=== PATIENT | male | born 1945 | race Caucasian/White ===

== ENCOUNTER → 2019-11-15 12:12 | Outpatient (CLI) | payer MEDICARE, OTHER, SELFPAY | PROVIDERS: Family Provider Student in an Organized Health Care Education/Training Program; PCP Student in an Organized Health Care Education/Training Program; Referring Provider Ophthalmology; Visit Provider Ophthalmology | DX: H10.33 Unspecified acute conjunctivitis, bilateral (principal) | CPT/HCPCS: 87070; 87205 ==

== ENCOUNTER → 2023-03-31 08:59 | Outpatient (CLI) | payer MEDICARE, OTHER, SELFPAY ==
--- NOTE | 2023-03-31 09:01 | DI.MRI.S_ITS ---
PROCEDURE: MR LUMBAR SPINE WO CON INDICATIONS: Spinal stenosis, lumbar region TECHNIQUE: Noncontrast sagittal T1 spin echo and T2 fast echo, sagittal STIR, and T2 fast spin echo through the lumbar spine. In cases with scoliosis, additional coronal T2 fast spin echo may be performed. COMPARISON: None. FINDINGS: Image quality: Excellent. Alignment and Curvature: There is normal bony alignment. Bone Marrow: Marrow is of normal overall signal. A large Schmorl's node is noted at the superior L2 endplate. No acute vertebral body compression fractures. Spinal Cord: Conus medullaris terminates at the L1 level. Visualized cord demonstrates normal signal and size. Paraspinous Soft Tissues: No paravertebral masses. T12-L1: Mild disc desiccation and height loss. Mild disc bulge. Mild facet ligamentum flavum hypertrophy. No canal stenosis. No foraminal narrowing. L1-L2: Moderate disc desiccation and height loss. Broad-based disc bulge. Moderate facet ligamentum flavum hypertrophy. Mild right foraminal narrowing. No left neural foraminal stenosis. L2-L3: Moderate disc desiccation and height loss. Broad-based disc bulge. Moderate facet ligamentum flavum hypertrophy. Moderate right and mild left neural foraminal stenosis. L3-L4: Mild disc desiccation and height loss. Broad-based disc bulge. Moderate facet and ligamentum flavum hypertrophy. Moderate canal stenosis. Moderate bilateral foraminal stenosis. L4-L5: Moderate to severe disc desiccation and height loss. Broad-based disc bulge. Severe facet ligamentum flavum hypertrophy. No canal stenosis. Moderate right and mild left neural foraminal stenosis. L5-S1: Severe disc desiccation and height loss. There is a 1.2 cm left synovial cyst along the lateral aspect of the facet joint. Moderate bilateral foraminal narrowing. No canal stenosis. IMPRESSION: 1. Disc desiccation height loss throughout the lumbar spine most severe at L5-S1. 2. Moderate bilateral foraminal stenosis at L3-4 and L5-S1, moderate right foraminal stenosis at L4-5 and L2-3. 3. Moderate to severe facet ligamentum flavum hypertrophy throughout the lumbar spine. Dictated by: Jessica Mitchell M.D. on 03/31/2023 at 10:33 Approved by: Jsesica Mitchell M.D. on 03/31/2023 at 10:37
== END ==
PROVIDERS: Family Provider Student in an Organized Health Care Education/Training Program; PCP Student in an Organized Health Care Education/Training Program; Referring Provider Physical Medicine & Rehabilitation Pain Medicine; Visit Provider Physical Medicine & Rehabilitation Pain Medicine
DX: M48.062 Spinal stenosis, lumbar region with neurogenic claudication (principal); M48.07 Spinal stenosis, lumbosacral region; M47.816 Spondylosis without myelopathy or radiculopathy, lumbar region
CPT/HCPCS: 72148

== ENCOUNTER → 2023-07-10 08:43 | Outpatient (CLI) | payer MEDICARE, OTHER, SELFPAY ==
--- NOTE | 2023-07-10 08:45 | DI.MRI.S_ITS ---
PROCEDURE: MR LUMBAR SPINE WO CON INDICATIONS: SPINAL STENOSIS, LUMBAR REGION TECHNIQUE: Noncontrast sagittal T1 spin echo and T2 fast echo, sagittal STIR, and T2 fast spin echo through the lumbar spine. In cases with scoliosis, additional coronal T2 fast spin echo may be performed. COMPARISON: [facility], MR, MR LUMBAR SPINE WO CON, 03/31/2023, 9:19. FINDINGS: Image quality: Excellent. Alignment and Curvature: There is normal bony alignment. Bone Marrow: Marrow is of normal overall signal. No acute vertebral body compression fractures. Scattered areas of Modic type 2 degenerative endplate changes are present. Spinal Cord: Conus medullaris terminates at the L1 level. Visualized cord demonstrates normal signal and size. Paraspinous Soft Tissues: No paravertebral masses. Mild grade 2 fatty infiltration of the paraspinous musculature. T12-L1: No significant spinal canal stenosis or neural foraminal narrowing. L1-L2: Mild circumferential disc bulging as well as mild bilateral facet hypertrophy and buckling of the ligamentum flavum. Findings result in mild narrowing of the spinal canal as well as mild to moderate left and mild right neural foraminal narrowing. L2-L3: Disc desiccation and circumferential disc bulging with mild bilateral facet hypertrophy and buckling of the ligamentum flavum. There is a questionable small disc extrusion in the right foraminal zone. Overall, findings result in mild to moderate narrowing of the spinal canal with effacement of the right lateral recess and at least moderate bilateral neural foraminal narrowing, slightly worse on the right. L3-L4: New disc extrusion is seen in the right paracentral to foraminal zone extending approximately 10 mm superiorly along the posterior aspect of the L3 vertebral body. This material is not as well visualized on axial images due to pulsation artifact. There is also circumferential disc bulging, moderate bilateral facet hypertrophy, and buckling of the ligamentum flavum at this level. Findings result in moderate narrowing of the spinal canal with effacement of the lateral recesses that is greater on the right than on the left as well as likely severe right neural foraminal narrowing with disc material impinging upon the exiting L3 nerve root and moderate left neural foraminal narrowing. L4-L5: Disc desiccation and loss of disc space height with circumferential disc bulging, moderate bilateral facet hypertrophy, buckling of the ligamentum flavum. Findings result in moderate narrowing of the spinal canal with basement of the lateral recesses that is slightly worse on the right as well as moderate to severe right and moderate left neural foraminal narrowing. L5-S1: Severe loss of disc space height with posterior disc-osteophyte complex and mild bilateral facet hypertrophy. Findings result and moderate neural foraminal narrowing without significant spinal canal stenosis. IMPRESSION: 1. At L3-4, a new right paracentral to right foraminal disc extrusion is seen with suspected impingement upon the exiting right L3 nerve root. Recommend correlation with neurologic exam findings. 2. At L4-5, degenerative changes result in moderate to severe right neural foraminal narrowing as well as moderate left neural foraminal narrowing and moderate spinal canal stenosis. 3. At L2-3, there is a questionable small right foraminal disc extrusion resulting in at least moderate versus high-grade narrowing of the right neural foramen. 4. Additional multilevel degenerative disc disease and facet hypertrophy as described in detail in the body of the report. No additional high-grade neural foraminal narrowing or high-grade spinal canal stenosis. Approved by: Rip White M.D. on 07/10/2023 at 12:44
== END ==
LOC: MRI 08:45
PROVIDERS: Family Provider Student in an Organized Health Care Education/Training Program; Referring Provider Physical Medicine & Rehabilitation Pain Medicine; Visit Provider Physical Medicine & Rehabilitation Pain Medicine
DX: M48.062 Spinal stenosis, lumbar region with neurogenic claudication (principal); M51.26 Other intervertebral disc displacement, lumbar region; M51.36 Other intervertebral disc degeneration, lumbar region; M47.816 Spondylosis without myelopathy or radiculopathy, lumbar region; M47.817 Spondylosis without myelopathy or radiculopathy, lumbosacral region
CPT/HCPCS: 72148

== ENCOUNTER → 2023-07-21 09:42 | Outpatient (CLI) | payer MEDICARE, OTHER, SELFPAY ==
[2023-07-21 11:19] LABS: Add Manual Diff / Slide Review NO; Basophils Absolute Auto 100 /uL (0-100); Basophils Percent Auto 0.9 % (0-2); Eosinophils Absolute Auto 200 /uL (0-450); Eosinophils Percent Auto 1.8 % (2-4); Hematocrit 43.5 % (41-53); Hemoglobin 15.4 g/dL (13.5-17.5); Lymphocytes Absolute Auto 1900 /uL (1100-4500); Lymphocytes Percent Auto 21.1 % (25-40); Mean Corpuscular HGB Conc 35.5 % (30-36); Mean Corpuscular Hemoglobin 35.3 PG (26-34); Mean Corpuscular Volume 99.3 fL (80-100); Monocytes Absolute Auto 1000 /uL (0-900); Monocytes Percent Auto 10.5 % (3-14); Neutrophils Absolute Auto 6000 /uL (1500-7000); Neutrophils Percent Auto 65.7 % (50-75); Platelet Count 311 X10^3/uL (150-400); Red Blood Cell Count 4.38 X10^6/uL (4.5-5.9); Red Cell Distribution Width 12.6 % (11.6-14.8); White Blood Cell Count 9.1 X10^3/uL (4.5-11.0)
[2023-07-21 11:42] LABS: BUN Creatinine Ratio 16.1 (6-22); Blood Urea Nitrogen 14 mg/dL (9-20); Calcium 9.5 mg/dL (8.4-10.2); Carbon Dioxide 28 mmol/L (22-32); Chloride 105 mmol/L (98-107); Estimated Glomerular Filt Rate > 60 mL/min (>60); Glucose 103 mg/dL (80-110); HEMOLYSIS < 15 (0-50); Potassium 4.6 mmol/L (3.4-5.1); Sodium 136 mmol/L (137-145)
== END ==
PROVIDERS: Family Provider Student in an Organized Health Care Education/Training Program; Referring Provider Orthopaedic Surgery Orthopaedic Surgery of the Spine; Visit Provider Orthopaedic Surgery Orthopaedic Surgery of the Spine
DX: Z01.818 Encounter for other preprocedural examination (principal); Z01.812 Encounter for preprocedural laboratory examination
CPT/HCPCS: 36415; 80048; 85025; 93005

== ENCOUNTER 2023-08-03 07:32 | Inpatient (IN) | payer MEDICARE, OTHER, SELFPAY ==
[2023-07-29 12:39] VITALS: BMI 25.0
[2023-08-03] VITALS (16 sets, daily range): BP systolic 116–151; BP diastolic 52–85; PULSE 62–84; RESP 10–17; TEMP 36.3–37.3; O2SAT 10–99; BMI 25.0
[2023-08-03] MEDS: LACTATED RINGERS 1,000 ML 42 ML IV ×2 (08:43→11:25)
[2023-08-03] MEDS: ACETAMINOPHEN 325 MG TABLET 975 MG PO (08:43)
--- NOTE | 2023-08-03 09:34 | PM.PREOP ---
Pre-operative Note Interval Note History & Physical reviewed/Exam performed by Physician: Yes Changes to H&P: No
[2023-08-03] MEDS: CEFAZOLIN 2 GM/100 ML PREMIX 100 ML IV ×2 (10:04→17:31)
--- NOTE | 2023-08-03 10:18 | SUR.OPER ---
Prone on spine table, head in foam head support, padded chest and pelvic supports, gel pad at knees, lower legs supported by pillows; nipples, genitalia and toes free of pressure, arms secured on foam padded arm boards at <90 degrees abduction. Tape over blanket at thigh secured to table.
[2023-08-03] MEDS: BUPIVACAINE LIPOSOME 266 MG/20 ML VIAL INJ (10:25)
[2023-08-03] MEDS: BUPIVACAINE 0.25% (PF) 60 ML, EPINEPHrine 0.15 MG INJ (10:25)
--- NOTE | 2023-08-03 12:24 | PM.OP.1 ---
Operative Date/Time/Diagnoses Date of procedure: 08/03/23 Time of procedure: 10:15 Pre-op diagnosis: 1. 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 L3-4 foramen stenosis Post-op diagnosis: same Procedure & Clinicians Procedure: 1. L3-4 Postero-lateral and posterior interbody fusion 2. L3-4 interbody cage placement. 3. L3-4 decompressive laminectomy with bilateral facetecomies 4. L3-4 Posterior non-segmental instrumentation 5. [place] of bone marrow from iliac crest 6. Utilization of microsurgical technique and operating microscope Same procedure as scheduled: Yes Indications: Patient has been having chronic back pain and worsening lumbar radiculopathy. Patient was found to have a L3-4 right far lateral disc herniation with migration causing significant lumbar radiculopathy correlating with his symptoms. Patient failed multiple conservative management with worsening pain weakness and numbness in his lower extremity. Patient has been having difficulty performing activity of daily living. After discussing risks benefits of treatment options, patient elected proceed with surgery. Surgeon: Benjamin Benavides Dress Cap Maker: Zee Denney Click Yes if Unassisted: No Anesthesia Type: General Operative Notes Closure Type: primary Specimen(s): none sent Prosthetic devices, grafts, tissues, transplants, or devices: Globus revolve screws, Rise cage Estimated Blood Loss (mL): 50 Blood products transfused: none Procedure in detail: Patient was seen in the preoperative area. Risks and benefits of the surgery was discussed with the patient. Informed consent was obtained from the patient and placed in the chart. Surgical site was marked. Patient was taken to the operative room. General anesthesia was administered. Prophylactic antibiotic was given to the patient less than 30 min before the incision was made. Patient was placed into a prone position on the Cecilio table. Patient's back was then prepped and draped in the sterile fashion. Time-out was performed at this time. Using AP and lateral C-arm imaging the interval between L3-4 was identified and marked on patient's back. A 2 inch incision 2 in from midline was made on the right side first. The fascia was incised in line with skin incision. Globus MARS retractors was placed inside the incision and docked onto the L3 lamina. Using microsurgical technique and operating microscope, a L3 laminectomy and L3-4 facetectomy was performed using a Kerrison rongeur. The laminectomy and facetectomy was performed in order to decompress patient's cauda equina as well as the nerve roots exiting at the L3-4 level. The disc space at L3-4 was identified. And a total diskectomy was performed at L3-4 level. There were multiple fragments of disc migrated cephalad and lateral causing significant lateral recess and foraminal stenosis with significant L3 nerve root impingement. Total facetectomy was required along with diskectomy in order to properly decompress the L3-4 lateral recess as well as the neural foramen. The endplates were decorticated using a rasp and shaver. The total diskectomy and decortication was performed at L3-4 level in order to to accomplish a L3-4 fusion. The local bone from the laminectomy and facetectomy was saved for local bone grafting. After the total diskectomy and decortication was completed, Globus Viacel bone graft material was combined with local bone that was harvested earlier. At this time, a separate skin is incision was made over the iliac crest. A Jamshidi needle was inserted into the iliac crest through a separate skin incision. 5 cc of bone marrow aspiration was obtained through the separate skin incision using a Jamshidi needle from the iliac crest. The bone marrow aspiration was combined with local bone and the Viacel bone grafting material. The bone grafting material was placed into the L3-4 interbody space along with a expandable cage. The cage was expanded to its maximum height using the torque limiting screwdriver. At this time a mirror image incision was made on the left side. The fascia was incised in line with the skin incision. Globus MARS retractor was inserted and docked onto the L3-4 posterolateral gutter. Using the power drill, posterior-lateral decortication was performed at L3-4 level until bleeding cortical bone was identified. The remaining bone grafting material was placed into the L3-4 posterior lateral gutter he order to accomplish posterolateral fusion at the L3-4 level. Using the double C-arm technique, pedicle screws were placed into the L3-4 pedicles bilaterally. This was done by placing the Jamshidi needle into the pedicles, then placing the guidewires over the Jamshidi needle, and finally placing the cannulated screws over the guidewires bilaterally. After the pedicle screws were placed, 2 titanium rods was locked into the heads of the pedicle screws using locking caps and torque limiting screwdriver. After all the hardware was placed, and confirmed with AP and lateral C-arm imaging, the wound was then irrigated with sterile normal saline and packed with Ray-Danelle gauze for 3 min to accomplish hemostasis. After the gauze was removed the deep fascia was closed with #1 Vicryl suture. The subcutaneous layer was closed with 2-0 Vicryl. The skin was closed with skin jude. Patient tolerated the procedure well. There were no complications. The Operation could not have been safely performed without compromising the technical result or length of the procedure, without the assistance of a skilled surgical services coordinator. The surgical services coordinator was medically necessary for proper positioning, retraction and manipulation of instruments, proper exposure, surgical preparation, and manipulation of tissue. Neuro monitoring was utilized throughout the entire case. Patient's monitoring signal was stable throughout entire procedure without any issues. Complications: none Post-operative Condition: stable Disposition: PACU Plan for aftercare: Admit to inpatient hospital
--- NOTE | 2023-08-03 12:27 | DI.RAD.S_ITS ---
PROCEDURE: XR LUMBAR SPINE 2-3V INDICATIONS: L3-4 TLIF TECHNIQUE: Intraoperative fluoroscopic views of the lumbar spine were acquired. COMPARISON: None. FINDINGS: Bones: 2 intraoperative fluoroscopic views demonstrate posterior fusion and discectomy at L3-4. IMPRESSION: Intraoperative fluoroscopic views of posterior fusion and discectomy. Dictated by: Jessica Mitchell M.D. on 08/03/2023 at 13:17 Approved by: Jessica Mitchell M.D. on 08/03/2023 at 13:17
[2023-08-03] MEDS: fentaNYL 100 MCG/2 ML INJ IV ×2 (12:45→12:52)
[2023-08-03] MEDS: hydrOXYzine 50 MG/ML INJ 25 MG IM (12:55)
[2023-08-03] MEDS: HYDROMORPHONE 1 MG INJ IV (13:02)
[2023-08-03] MEDS: OXYCODONE IR 5 MG TABLET PO (13:38)
--- NOTE | 2023-08-03 14:02 | SUR.PHASEI ---
PT TRANSFERED TO FLOOR WITH BELONGINGS BAG AND BY NESS MCCOY
[2023-08-03] MEDS: LACTATED RINGERS 1,000 ML 125 ML IV (14:47)
[2023-08-03] MEDS: HYDROMORPHONE 0.5 MG INJ IV ×2 (14:48→19:43)
--- NOTE | 2023-08-03 15:14 | PC.NURSE ---
1404--rec'd pt from PACU awake and alert but resting with eyes closed; reports pain 8/10 to lower back; pt was medicated in PACU prior to transfer; dressing to mid lower back CDI; pedal strength equal bilaterally; pt on o2/2l/nc; at bedside; status report given
[2023-08-03] MEDS: OXYCODONE IR 10 MG TABLET PO ×3 (16:57→23:12)
[2023-08-03] MEDS: DOCUSATE 100 MG CAPSULE PO (20:21)
[2023-08-03] MEDS: levETIRAcetam 250 MG TABLET 1000 MG PO (20:22)
[2023-08-03] MEDS: SENNOSIDES 8.6 MG TABLET 17.2 MG PO (20:22)
[2023-08-03] MEDS: PHENYTOIN ER 100 MG CAPSULE PO (20:23)
[2023-08-03] MEDS: ONDANSETRON 4 MG ODT SL (23:12)
[2023-08-04] VITALS: BP 121/56; PULSE 79; RESP 19; TEMP 36.7; O2SAT 94
[2023-08-04] MEDS: CEFAZOLIN 2 GM/100 ML PREMIX 100 ML IV (02:00)
[2023-08-04] MEDS: OXYCODONE IR 10 MG TABLET PO ×2 (02:46→08:12)
[2023-08-04 04:00] VITALS: BP 122/59; PULSE 79; RESP 17; TEMP 36.8; O2SAT 93
[2023-08-04 05:05] LABS: Hematocrit 38.3 % (41-53); Hemoglobin 13.2 g/dL (13.5-17.5)
--- NOTE | 2023-08-04 07:43 | PM.PNPO.1 ---
Subjective Subjective Date Patient Seen: 08/04/23 Time Patient Seen: 07:43 Interval history: Patient's pain is moderate to severe. Patient has not yet been out of bed. Patient has his home to assist him. Exam Vital Signs (past 8 hours): - 08/04/23 00:00 08/04/23 04:00 Temperature 98.0 F 98.3 F Pulse Rate 79 79 Respiratory Rate 19 17 Blood Pressure 121/56 L 122/59 L Pulse Oximetry 94 93 Oxygen Flow Rate 1 Oxygen Delivery Method Nasal Cannula Oxygen Flow Rate 1 Narrative Exam Narrative: 77-year-old male resting comfortably in bed in no apparent distress. Motor functions intact bilateral lower extremities. Sensation grossly intact to light touch bilateral lower extremities. Const General: cooperative and comfortable Nutritional Appearance: average body habitus Orientation: alert Resp Effort & Inspection: normal respiratory effort and able to speak in complete sentences Objective Labs 08/04/23 04:18 Labs: Laboratory Results - last 24 hr 08/04/23 04:18 Hgb 13.2 L Hct 38.3 L PFSH Medical History (Updated 07/29/23 @ 13:10 by Pricila Valdez RN) Radiculopathy Lumbar disc herniation Bladder cancer (2020) Arthritis Seizure disorder (~1983) Surgical History (Updated 07/29/23 @ 13:10 by Pricila Valdez RN) Hx of tonsillectomy H/O transurethral resection of bladder tumor (TURBT) Hx of bilateral cataract extraction Social History household members: spouse Smoking Status: Former smoker alcohol intake: current Assessment & Plan Post-op Postoperative Procedures: Procedures Operation Date: 08/03/23 09:15 Actual Procedure Side Surgeon p L3-4 TLIF Benjamin Benavides MD Postoperative day: 1 Postoperative status: doing well and marginal pain control Postoperative plan: routine post-op care Postoperative plan narrative: Mobilize with physical therapy, limit bending, twisting, lifting Multimodal pain management Disposition likely home today or tomorrow. Quality VTE Deep Vein Thrombosis/Pulmonary Embolism Present on Admission: No
[2023-08-04] MEDS: PHENYTOIN ER 100 MG CAPSULE PO ×2 (08:11→20:49)
[2023-08-04] MEDS: CHOLECALCIFEROL (VITAMIN D3) 1,000 UNIT TABLET 2000 UNIT PO (08:11)
[2023-08-04] MEDS: DOCUSATE 100 MG CAPSULE PO ×2 (08:12→20:49)
[2023-08-04] MEDS: levETIRAcetam 250 MG TABLET 1000 MG PO ×2 (08:12→20:49)
[2023-08-04 08:47] VITALS: BP 126/61; PULSE 83; RESP 15; TEMP 37.2; O2SAT 95
--- NOTE | 2023-08-04 09:10 | PT.IIE ---
Current Diagnoses Spinal stenosis, lumbar region without neurogenic claudication (08/03/23) Intervertebral disc disorders with radiculopathy, lumbar region (08/03/23) Surgery Performed Operation Date: 08/03/23 09:15 Actual Procedures p L3-4 TLIF - Benjamin Benavides MD Surgical History (Last Updated 07/29/23 @ 13:10 by Pricila Valdez, RN) H/O transurethral resection of bladder tumor (TURBT) Hx of bilateral cataract extraction Hx of tonsillectomy Medical History (Last Updated 07/29/23 @ 13:10 by Pricila Valdez RN) Arthritis Bladder cancer (2020) Lumbar disc herniation Radiculopathy Seizure disorder (~1983) Physical Therapy Inpatient Evaluation/Re-Eval M1 PT/OT-IP Prior Functional Status Start: 08/04/23 12:54 Freq: NEEDED Status: Active Protocol: Document 08/04/23 09:10 AB (Rec: 08/04/23 13:07 AB [id number]) Medical Review Prior Functional Status Medical History Reviewed Yes Communication able to make needs known Mobility and Gait pt stated that he was independen tiwht all mobilities and ambulation using a FWW Social History Household Members spouse Living Arrangements House Number of Floors (Floors) One Floor Number of Stairs To Enter/Railing? no steps to enter Home Environment Standard Height Toilet,Walk in Shower,Tub/Shower Home Equipment Front Wheel Walker,Raised Toilet Seat w/Armrests,Shower Seat with Backrest,Hand Held Shower M2 PT-IP Current Condition Start: 08/04/23 12:54 Freq: NEEDED Status: Active Protocol: Document 08/04/23 09:10 AB (Rec: 08/04/23 13:07 AB [id number]) Physical Therapy Current Condition Current Condition Evaluation Date 08/04/23 Treatment Diagnosis s/p L3-4 TLIF; difficulty in walkiing Onset Date 08/03/23 M3 PT-IP Subjective Start: 08/04/23 12:54 Freq: NEEDED Status: Active Protocol: Document 08/04/23 09:10 AB (Rec: 08/04/23 13:07 AB [id number]) Subjective Physical Therapy Visit Type Type Initial Evaluation Visit Start Time 09:10 Visit Stop Time 10:05 Number of FICTION AND NONFICTION WRITER PROSE Visits 0 Physical Therapy Visit Comments Patient Comments agreeable to do PT Therapy Pain Assessment Pain When Pain Assessed At Rest Pain Present Pain Present Pain Reported Location Back Intensity 9 Scale Used Numeric (0 - 10) Pain Management Techniques Distraction,Modification of Treatment,Re-positioning, Timing of Activity with Medications M4 PT-IP Mobility and Gait Start: 08/04/23 12:54 Freq: NEEDED Status: Active Protocol: Document 08/04/23 09:10 AB (Rec: 08/04/23 13:07 AB [id number]) PT-Bed Mobility Assessment Rolling Type of Rolling Log Rolling Level of Assist Maximal Assistance Supine to Sit Supine to Sit Maximum Assistance,1 Person Assistance,2 Person Assistance ,Bedrails Sit to Supine Sit to Supine Maximum Assistance,2 Person Assistance,Bedrails Scooting Scooting to Edge of Bed Maximum Assistance Scooting Up and Down in Bed Minimal Assistance PT-Transfer Assessment Sit to and From Stand Sit to and from Stand Maximum Assistance,2 Person Assistance,Use of Upper Extremities Equipment Transfer Assistive Device Gait Belt,Front Wheeled Walker Orthotic/Prosthetic Devices or Brace: No Comments Mobility Comments pt supine in bed and agreeable to do PT. obtained PLOF and home set up from pt. with requiring increase time to respond to questions and instructions. spouse arrived. educated pt regarding back precautions and log roll bed mobility. pt completed supine to sit max a x 1-2 and max cues. c/o increase back pain. pt requiring mod A for sitting balance on EOB. max A for scooting to EOB. attempted sit<>stand x 2 reps but pt unable to stand. NAC came to assist. attempted sit <>stand again x 3 reps. pt able to stand on last attempt but requiring max A x 2 for standing balance using FWW for support. pt also has heavy UE use on FWW and LE pushing against the bed for support. (+) L knee buckling noted. attempted to step trasnfer to chair but pt unable to complete. pt requested to sit back on EOB. pst stated that he has to use the toilet. pt not safe to stand and use the urinal at this time and unable to lean sideway to assist with brief/pants management. opted for pt to lay back in bed. pt scooted to HOB min A and cues. completed log roll sit to supine max A x 2 and max cues. positioned pt in bed. call light and table placed within reach. Gait Assessment Comments Gait Comments unable at this time PT-Balance Assessment Sitting Balance and Reactions Static Sitting Balance Ability Fair Dynamic Sitting Balance Ability Poor Standing Balance and Reactions Static Standing Balance Ability Poor Dynamic Standing Balance Ability Poor Device Used FWW M5 PT-IP Objective Assessments Start: 08/04/23 12:54 Freq: NEEDED Status: Active Protocol: Document 08/04/23 09:10 AB (Rec: 08/04/23 13:07 AB [id number]) Orientation Orientation/Cognition Level of Alertness Confusional State Orientation Name,Place,Situation Language Function Ability Hard of Hearing Memory Description 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,Cable Swager Impaired Gross Range of Motion Lower Extremity ROM Assessment Within Functional Limits Strength Lower Extremity Strength Assessment Right Impaired Hip 3+/5 Knee 3-/5 Sensation Assessment Sensation Gross Sensation WNL Muscle Tone Muscle Tone WNL Yes M6 PT-IP Treatment Start: 08/04/23 12:54 Freq: NEEDED Status: Active Protocol: Document 08/04/23 09:10 AB (Rec: 08/04/23 13:07 AB [id number]) Physical Therapy Treatment Education Education Provided Precautions,Weight Bearing Status,Post-Op Packet,Safety M7 PT-IP Assessment and Plan Start: 08/04/23 12:54 Freq: NEEDED Status: Active Protocol: Document 08/04/23 09:10 AB (Rec: 08/04/23 13:07 AB [id number]) PT Summary Assessment and Plan Potential Rehabilitation Potential Fair Status of Condition at Evaluation Evolving Summary Impairments Pain,ROM,Strength,Balance, Coordination,Sensation,Tone, Cognition,Bed Mobility, Transfers,Gait,Activity Tolerance Assessment Summary pt is a 77 y/o M s/p L3-4 TLIF POD 1. pt has back precautions. pt requiring max A x 2 to total A x 2 form mobility and unable to transfer or ambulate at this time. Mechanical lift transfers with nursing staff at this time. pt will require SNF rehab ot improve overall strength and mobility. will continue to assess. Goals Bed Mobility Goal Minimal Assistance Transfer Goal Minimal Assistance,Front Wheeled Walker Gait Goal Minimal Assistance,Front Wheel Walker Gait Distance 25 Other Goals improve bed mobility, transfers and ambulation using FWW ~ 100 ft SBA Days to Meet Goals 10 Frequency of Treatment Frequency Of Treatment Twice a Day Treatment Plan Physical Therapy Treatment Plan Bed Mobility Training,Transfer Training,Gait Training, Therapeutic Exercise,Balance Retraining,Post Op Education, Discharge Planning,Hot or Cold Pack,Neuromuscular Re-ed, Coordination Retraining,Manual Therapy Precautions Lumbar Precautions Log Roll,No Twisting,Limit Bending,Lifting Restriction of 10 lbs,Gait Belt above Incisional Area Recommendations To Nursing Amount of Assist Needed Mechanical Lift Discharge Recommendations PT Discharge Recommendations SNF Rehab Transportation Needs at Discharge Wheelchair/Cabulance
--- NOTE | 2023-08-04 11:15 | OT.IP.EVAL ---
Current Diagnoses Spinal stenosis, lumbar region without neurogenic claudication (08/03/23) Intervertebral disc disorders with radiculopathy, lumbar region (08/03/23) Surgery Performed Operation Date: 08/03/23 09:15 Actual Procedures p L3-4 TLIF - Benjamin Benavides MD Past Medical History (Last Updated 07/29/23 @ 13:10 by Pricila Valdez, RN) Arthritis Bladder cancer (2020) Lumbar disc herniation Radiculopathy Seizure disorder (~1983) Surgical History (Last Updated 07/29/23 @ 13:10 by Pricila Valdez RN) H/O transurethral resection of bladder tumor (TURBT) Hx of bilateral cataract extraction Hx of tonsillectomy Occupational Therapy Inpatient Evaluation/Re-Eval M1 PT/OT-IP Prior Functional Status Start: 08/04/23 12:54 Freq: NEEDED Status: Active Protocol: Document 08/04/23 09:10 AB (Rec: 08/04/23 13:07 AB [id number]) Medical Review Prior Functional Status Medical History Reviewed Yes Communication able to make needs known Mobility and Gait pt stated that he was independent with all mobilities and ambulation using a FWW Social History Household Members spouse Living Arrangements House Number of Floors (Floors) One Floor Number of Stairs To Enter/Railing? no steps to enter Home Environment Standard Height Toilet,Walk in Shower,Tub/Shower Home Equipment Front Wheel Walker,Raised Toilet Seat w/Armrests,Shower Seat with Backrest,Hand Held Shower M1 PT/OT-IP Prior Functional Status Start: 08/04/23 13:04 Freq: NEEDED Status: Active Protocol: Document 08/04/23 10:45 [facility] (Rec: 08/04/23 13:30 [facility] [id number]) Medical Review Prior Functional Status Communication Independent Mobility and Gait Pt states used a 4ww at all times. Activities of Daily Living and IADL's Pt states has pain and needing increased time for ADL and IADL needs. Social History Household Members spouse Living Arrangements House Number of Floors (Floors) One Floor Number of Stairs To Enter/Railing? NO steps to enter. Home Environment High Toilet,Tub/Shower Home Equipment Front Wheel Walker,Four Wheel Walker,Manual Wheelchair, Raised Toilet Seat w/Armrests, Shower Seat with Backrest,Hand Held Shower Additional Social History Comment Pt states has orders grab bars to put up in the shower. M2 OT-IP Current Condition Start: 08/04/23 13:04 Freq: Status: Active Protocol: Document 08/04/23 10:45 [facility] (Rec: 08/04/23 13:30 [facility] [id number]) Occupational Therapy Current Condition Current Condition Evaluation Date 08/04/23 Treatment Diagnosis S/P L3-4 TLIF Post Operative Precautions Lumbar Precautions Log Roll,No Twisting,Limit Bending,Lifting Restriction of 10 lbs,Gait Belt above Incisional Area M3 OT- IP Subjective and Pain Start: 08/04/23 13:04 Freq: Status: Active Protocol: Document 08/04/23 10:45 [facility] (Rec: 08/04/23 13:30 [facility] [id number]) OT- Subjective Occupational Therapy Visit Type Type Initial Evaluation Visit Start Time 10:45 Visit Stop Time 11:15 Occupational Therapy Visit Comments Patient Comments Pt agreed to get up. OT Pain Assessment Pain When Pain Assessed During Mobility Pain Present Pain Present Pain Reported Location Back Intensity 9 Scale Used Numeric (0 - 10) M4 OT- IP ADL's Start: 08/04/23 13:04 Freq: Status: Active Protocol: Document 08/04/23 10:45 [facility] (Rec: 08/04/23 13:30 [facility] [id number]) OT [id number] Comments OT Self-Feeding Comments Not at meal time. OT ADL-Grooming General Evaluation Grooming Ability Standby Assistance Comments OT Grooming Comments Set-up. OT ADL-Oral Care General Eval Oral Care Ability Standby Assistance Comments Oral Care Comments Educated if standing best to spit into a cup or hinge at his hips to best follow his back precautions. OT ADL-Dressing General Eval Lower Body Dressing Ability Maximum Assistance Areas Needing Assistance Socks Comments OT Dressing Comments Initiated education of LB dressing equipment needs. OT ADL-Toileting General Evaluation Toileting Ability Maximum Assistance Comments OT Toileting Comments Nursing aid assisting to hold the urinal for the pt to use while standing with FWW and two person assist. OT ADL-Bathing Comments OT Bathing Comments Sponge bath more appropriate at this time. M5 OT- IP IADL's Start: 08/04/23 13:04 Freq: Status: Active Protocol: Document 08/04/23 10:45 [facility] (Rec: 08/04/23 13:30 [facility] [id number]) OT-Instrumental Activities of Daily Living Home Safety Awareness Awareness of Need for Assistance at Home Decreased Awareness Home Safety Comments Pt is groggy and having difficulty to follow commands at this time. Medication Management Medication Management Comments Pt states does his own. Money Management Money Management Comments Pt states pays the bills. Meal Preparation Meal Preparation Caregiver Provides Assist Visiting Housekeeper Visiting Housekeeper Caregiver Provides Assist M6 OT- IP Functional Cognition Start: 08/04/23 13:04 Freq: Status: Active Protocol: Document 08/04/23 10:45 [facility] (Rec: 08/04/23 13:30 [facility] [id number]) Cognitive Factors Limiting Selfcare Function Cognitive Ability Level of Alertness Drowsy Patient Orientation Name,Place,Situation Attention Span Ability Capable of Focused Attention, Unable to Focus,Unable to Sustain Attention Ability to Follow Commands Able to Follow One Step Commands with Increased Time, Able to Follow One Step Commands with Repetition Safety Awareness Decreased Recall of Precautions,Decreased Ability to Apply Precautions, Underestimates Need for Assistance Cognitive Comments Cognitive Assessment Comments Pt is groggy, needing increased time to process and follow directions, and pt is also impulsive and needing MAX vc for safety awareness at this time. M7 OT- IP Mobility and Balance Start: 08/04/23 13:04 Freq: Status: Active Protocol: Document 08/04/23 10:45 [facility] (Rec: 08/04/23 13:30 [facility] [id number]) OT-Transfer Assessment Sit to and From Stand Sit to and from Stand Moderate Assistance,2 Person Assistance Transfers Transfer Ability Moderate Assistance,2 Person Assistance Technique Transfer Destination Bed,Chair Transfer Technique Stand Step Pivot Devices Transfer Assistive Devices Gait Belt,Front Wheeled Walker Comments Mobility Comments MOD A to assist to get his trunk upright from sidelying. MOD A x2 to stand with FWW. MOD A x2 to transfer to the recliner, pt tends to buckle. OT- Balance Assessment Sitting Balance and Reactions Static Sitting Balance Ability Fair Dynamic Sitting Balance Ability Poor Standing Balance and Reactions Static Standing Balance Ability Poor Dynamic Standing Balance Ability Poor M8 OT- IP Objective Assessments Start: 08/04/23 13:04 Freq: Status: Active Protocol: Document 08/04/23 10:45 [facility] (Rec: 08/04/23 13:30 [facility] [id number]) OT Gross Range of Motion Upper Extremity Range of Motion Assessment Within Functional Limits M9 OT- IP Assessment and Plan Start: 08/04/23 13:04 Freq: Status: Active Protocol: Document 08/04/23 10:45 [facility] (Rec: 08/04/23 13:30 [facility] [id number]) OT Summary Assessment and Plan Potential Rehabilitation Potential Good Analytic Complexity at Evaluation Low Summary OT Impairments Pain,Range of Motion,Strength, Balance,Functional Cognition, Functional Mobility,Self- Feeding,Grooming,Dressing, Toileting,Bathing,Toilet Transfers,Shower Transfers, Activity Tolerance Progress Towards Goals Slow Progress due to Pain,Slow Progress due to Medical Issues,Slow Progress due to Activity Tolerance,Slow Progress due to Cognition Assessment Summary Pt low complexity and main barriers are pain, impulsive, vc for his back precautions and will need skilled rehab at this time pending his progress and assist at home. Goals Grooming Goal Independent Dressing Goal Minimal Assistance Toileting Goal Independent Bathing Goal Minimal Assistance Toilet Transfer Goal Minimal Assistance Shower Transfer Goal Minimal Assistance Days to Meet Goals 15 Frequency of Treatment Frequency Of Treatment Once a Day Treatment Plan OT Treatment Plan ADL Training,Functional Cognition Training,Functional Mobility,Patient/Family Education,Discharge Planning Discharge Recommendations OT Discharge Recommendations SNF Rehab Transportation Needs at Discharge Wheelchair/Cabulance
--- NOTE | 2023-08-04 11:15 | OT.IP.EVAL ---
Current Diagnoses Spinal stenosis, lumbar region without neurogenic claudication (08/03/23) Intervertebral disc disorders with radiculopathy, lumbar region (08/03/23) Surgery Performed Operation Date: 08/03/23 09:15 Actual Procedures p L3-4 TLIF - Benjamin Benavides MD Past Medical History (Last Updated 07/29/23 @ 13:10 by Pricila Valdez, RN) Arthritis Bladder cancer (2020) Lumbar disc herniation Radiculopathy Seizure disorder (~1983) Surgical History (Last Updated 07/29/23 @ 13:10 by Pricila Valdez RN) H/O transurethral resection of bladder tumor (TURBT) Hx of bilateral cataract extraction Hx of tonsillectomy Occupational Therapy Inpatient Evaluation/Re-Eval M1 PT/OT-IP Prior Functional Status Start: 08/04/23 12:54 Freq: NEEDED Status: Active Protocol: Document 08/04/23 09:10 AB (Rec: 08/04/23 13:07 AB [id number]) Medical Review Prior Functional Status Medical History Reviewed Yes Communication able to make needs known Mobility and Gait pt stated that he was independent with all mobilities and ambulation using a FWW Social History Household Members spouse Living Arrangements House Number of Floors (Floors) One Floor Number of Stairs To Enter/Railing? no steps to enter Home Environment Standard Height Toilet,Walk in Shower,Tub/Shower Home Equipment Front Wheel Walker,Raised Toilet Seat w/Armrests,Shower Seat with Backrest,Hand Held Shower M1 PT/OT-IP Prior Functional Status Start: 08/04/23 13:04 Freq: NEEDED Status: Active Protocol: Document 08/04/23 10:45 [facility] (Rec: 08/04/23 13:30 [facility] [id number]) Medical Review Prior Functional Status Communication Independent Mobility and Gait Pt states used a 4ww at all times. Activities of Daily Living and IADL's Pt states has pain and needing increased time for ADL and IADL needs. Social History Household Members spouse Living Arrangements House Number of Floors (Floors) One Floor Number of Stairs To Enter/Railing? NO steps to enter. Home Environment High Toilet,Tub/Shower Home Equipment Front Wheel Walker,Four Wheel Walker,Manual Wheelchair, Raised Toilet Seat w/Armrests, Shower Seat with Backrest,Hand Held Shower Additional Social History Comment Pt states has orders grab bars to put up in the shower. M2 OT-IP Current Condition Start: 08/04/23 13:04 Freq: Status: Active Protocol: Document 08/04/23 10:45 [facility] (Rec: 08/04/23 13:30 [facility] [id number]) Occupational Therapy Current Condition Current Condition Evaluation Date 08/04/23 Treatment Diagnosis S/P L3-4 TLIF Post Operative Precautions Lumbar Precautions Log Roll,No Twisting,Limit Bending,Lifting Restriction of 10 lbs,Gait Belt above Incisional Area M3 OT- IP Subjective and Pain Start: 08/04/23 13:04 Freq: Status: Active Protocol: Document 08/04/23 10:45 [facility] (Rec: 08/04/23 13:30 [facility] [id number]) OT- Subjective Occupational Therapy Visit Type Type Initial Evaluation Visit Start Time 10:45 Visit Stop Time 11:15 Occupational Therapy Visit Comments Patient Comments Pt agreed to get up. OT Pain Assessment Pain When Pain Assessed During Mobility Pain Present Pain Present Pain Reported Location Back Intensity 9 Scale Used Numeric (0 - 10) M4 OT- IP ADL's Start: 08/04/23 13:04 Freq: Status: Active Protocol: Document 08/04/23 10:45 [facility] (Rec: 08/04/23 13:30 [facility] [id number]) OT [id number] Comments OT Self-Feeding Comments Not at meal time. OT ADL-Grooming General Evaluation Grooming Ability Standby Assistance Comments OT Grooming Comments Set-up. OT ADL-Oral Care General Eval Oral Care Ability Standby Assistance Comments Oral Care Comments Educated if standing best to spit into a cup or hinge at his hips to best follow his back precautions. OT ADL-Dressing General Eval Lower Body Dressing Ability Maximum Assistance Areas Needing Assistance Socks Comments OT Dressing Comments Initiated education of LB dressing equipment needs. OT ADL-Toileting General Evaluation Toileting Ability Maximum Assistance Comments OT Toileting Comments Nursing aid assisting to hold the urinal for the pt to use while standing with FWW and two person assist. OT ADL-Bathing Comments OT Bathing Comments Sponge bath more appropriate at this time. M5 OT- IP IADL's Start: 08/04/23 13:04 Freq: Status: Active Protocol: Document 08/04/23 10:45 [facility] (Rec: 08/04/23 13:30 [facility] [id number]) OT-Instrumental Activities of Daily Living Home Safety Awareness Awareness of Need for Assistance at Home Decreased Awareness Home Safety Comments Pt is groggy and having difficulty to follow commands at this time. Medication Management Medication Management Comments Pt states does his own. Money Management Money Management Comments Pt states pays the bills. Meal Preparation Meal Preparation Caregiver Provides Assist Grated Cheese Maker Grated Cheese Maker Caregiver Provides Assist M6 OT- IP Functional Cognition Start: 08/04/23 13:04 Freq: Status: Active Protocol: Document 08/04/23 10:45 [facility] (Rec: 08/04/23 13:30 [facility] [id number]) Cognitive Factors Limiting Selfcare Function Cognitive Ability Level of Alertness Drowsy Patient Orientation Name,Place,Situation Attention Span Ability Capable of Focused Attention, Unable to Focus,Unable to Sustain Attention Ability to Follow Commands Able to Follow One Step Commands with Increased Time, Able to Follow One Step Commands with Repetition Safety Awareness Decreased Recall of Precautions,Decreased Ability to Apply Precautions, Underestimates Need for Assistance Cognitive Comments Cognitive Assessment Comments Pt is groggy, needing increased time to process and follow directions, and pt is also impulsive and needing MAX vc for safety awareness at this time. M7 OT- IP Mobility and Balance Start: 08/04/23 13:04 Freq: Status: Active Protocol: Document 08/04/23 10:45 [facility] (Rec: 08/04/23 13:30 [facility] [id number]) OT-Transfer Assessment Sit to and From Stand Sit to and from Stand Moderate Assistance,2 Person Assistance Transfers Transfer Ability Moderate Assistance,2 Person Assistance Technique Transfer Destination Bed,Chair Transfer Technique Stand Step Pivot Devices Transfer Assistive Devices Gait Belt,Front Wheeled Walker Comments Mobility Comments MOD A to assist to get his trunk upright from sidelying. MOD A x2 to stand with FWW. MOD A x2 to transfer to the recliner, pt tends to buckle. OT- Balance Assessment Sitting Balance and Reactions Static Sitting Balance Ability Fair Dynamic Sitting Balance Ability Poor Standing Balance and Reactions Static Standing Balance Ability Poor Dynamic Standing Balance Ability Poor M8 OT- IP Objective Assessments Start: 08/04/23 13:04 Freq: Status: Active Protocol: Document 08/04/23 10:45 [facility] (Rec: 08/04/23 13:30 [facility] [id number]) OT Gross Range of Motion Upper Extremity Range of Motion Assessment Within Functional Limits M9 OT- IP Assessment and Plan Start: 08/04/23 13:04 Freq: Status: Active Protocol: Document 08/04/23 10:45 [facility] (Rec: 08/04/23 13:30 [facility] [id number]) OT Summary Assessment and Plan Potential Rehabilitation Potential Good Analytic Complexity at Evaluation Low Summary OT Impairments Pain,Range of Motion,Strength, Balance,Functional Cognition, Functional Mobility,Self- Feeding,Grooming,Dressing, Toileting,Bathing,Toilet Transfers,Shower Transfers, Activity Tolerance Progress Towards Goals Slow Progress due to Pain,Slow Progress due to Medical Issues,Slow Progress due to Activity Tolerance,Slow Progress due to Cognition Assessment Summary Pt low complexity and main barriers are pain, impulsive, vc for his back precautions and will need skilled rehab at this time pending his progress and assist at home. Goals Grooming Goal Independent Dressing Goal Minimal Assistance Toileting Goal Independent Bathing Goal Minimal Assistance Toilet Transfer Goal Minimal Assistance Shower Transfer Goal Minimal Assistance Days to Meet Goals 15 Frequency of Treatment Frequency Of Treatment Once a Day Treatment Plan OT Treatment Plan ADL Training,Functional Cognition Training,Functional Mobility,Patient/Family Education,Discharge Planning Discharge Recommendations OT Discharge Recommendations SNF Rehab Transportation Needs at Discharge Wheelchair/Cabulance
[2023-08-04] MEDS: ACETAMINOPHEN 325 MG TABLET 650 MG PO ×2 (11:16→17:17)
[2023-08-04] MEDS: OXYCODONE IR 5 MG TABLET PO ×2 (11:16→17:17)
--- NOTE | 2023-08-04 14:05 | PT.IPTN ---
Current Diagnoses Spinal stenosis, lumbar region without neurogenic claudication (08/03/23) Intervertebral disc disorders with radiculopathy, lumbar region (08/03/23) Surgery Performed Operation Date: 08/03/23 09:15 Actual Procedures p L3-4 TLIF - Benjamin Benavides MD Physical Therapy Treatment Note M2 PT-IP Current Condition Start: 08/04/23 12:54 Freq: NEEDED Status: Active Protocol: Document 08/04/23 09:10 AB (Rec: 08/04/23 13:07 AB [id number]) Physical Therapy Current Condition Current Condition Evaluation Date 08/04/23 Treatment Diagnosis s/p L3-4 TLIF; difficulty in walkiing Onset Date 08/03/23 M3 PT-IP Subjective Start: 08/04/23 12:54 Freq: NEEDED Status: Active Protocol: Document 08/04/23 14:05 AB (Rec: 08/04/23 16:24 AB [id number]) Subjective Physical Therapy Visit Type Type Treatment Note Visit Start Time 14:05 Visit Stop Time 14:35 Number of FORECLOSURE CLERK Visits 30 Physical Therapy Visit Comments Patient Comments agreeable to do PT; wants to go home Therapy Pain Assessment Pain When Pain Assessed At Rest Location Back Intensity 8 Scale Used Numeric (0 - 10) Pain Behaviors Wincing Pain Management Techniques Apply Cold,Distraction, Modification of Treatment,Re- positioning,Timing of Activity with Medications M4 PT-IP Mobility and Gait Start: 08/04/23 12:54 Freq: NEEDED Status: Active Protocol: Document 08/04/23 14:05 AB (Rec: 08/04/23 16:24 AB [id number]) PT-Bed Mobility Assessment Rolling Type of Rolling Log Rolling Level of Assist Maximal Assistance Supine to Sit Supine to Sit Maximum Assistance,1 Person Assistance Sit to Supine Sit to Supine Maximum Assistance,1 Person Assistance PT-Transfer Assessment Sit to and From Stand Sit to and from Stand Maximum Assistance,1 Person Assistance,2 Person Assistance ,Use of Upper Extremities Equipment Transfer Assistive Device Gait Belt,Front Wheeled Walker Orthotic/Prosthetic Devices or Brace: No Transfers Transfer Destination Bed Transfer Technique Stand Step Pivot Transfer Ability Level of Assist Maximum Assistance,2 Person Assistance,Use of Upper Extremities Comments Mobility Comments pt sitting on the chair and spouse in room. spouse adamant about pt going to home today. informed pt and spouse regarding 2 person assist and spouse stated that they has their neighbors that will assist them and can provide 24 /7. spouse also stated that she was a caregiver before and knows how to assist pt. also stated that they have a friend who is a PT that lives next door and can check on pt. also informed that they have a transport w/c that they can use at home. pt completed sit to stand max A x 2 and max cues. ambulated in room using FWW max A x 2 and max cues ~ 3ft and with chair follow. pt sat back on the chair. Caregiver training conducted. educated pt's spouse on how to use safety belt and how to assist pt. educated spouse on how to assist pt and how to cue pt. pt needing 2 person assist and PT as the 2nd person assist at this time. pt completed sit to stand max A x 2 and ambulated in room using FWW max A x 2 and max cues ~ 2 ft. pt sat back on the chair. informed spouse that she should be able to cue on how to do things for safety and be able to instruct the 2nd person assist pt at home. spouse understood. pt completed sit to stand from chair max Ax 2 and max cues. completed step transfer to EOB max A x 2 and max cues. PT assisting pt mostly with mobility and cueing pt. pt completed sit <>supine max A and max cues. educated spouse on how to assist pt. pt completed sit<>supine log roll again and with spouse assisting. spouse was able to assist pt but needs occasional cues from PT on how to instruct pt. while PT was doing caregiver training, spouse asked how much long it is going to take since they need to catch the ferry. informed pt and spouse that PT is doing the training to make sure that pt will be safe and spouse will know how to assist pt. informed spouse to assisting pt back to chair and that PT will assist but spouse has to instruct PT on how to assist pt. spouse then stated that she had previous back surgeries and is limited on how she will assist pt. pt completed sit to stand from EOB max A x 2 and max cues and step transfer to chair using FWW max x 2 and max cuesl. positioned pt on the chair. call light and table placed within reach. informed showcase trimmer and nurse regarding pt's mobility and how caregiver training went. Gait Assessment Gait Gait Assistance Required: Maximum Assistance,2 Person Assist Distance (Feet) 3 Able to Maintain Weight Bearing Status Yes During Gait Assistive Devices Assistive Device Gait Belt,Front Wheeled Walker Orthotic/Prosthetic Devices or Brace: No Gait Deviations General Gait Pattern Antalgic,Decreased Stride Length,Decreased Feet Clearance Factors Limiting Gait Function Factors Limiting Gait Function Decreased Activity Tolerance, Decreased Strength,Difficulty Following Directions,Limited Range of Motion,Pain,Poor Balance,Poor Safety Awareness M5 PT-IP Objective Assessments Start: 08/04/23 12:54 Freq: NEEDED Status: Active Protocol: Document 08/04/23 09:10 AB (Rec: 08/04/23 13:07 AB [id number]) Orientation Orientation/Cognition Level of Alertness Confusional State Orientation Name,Place,Situation Language Function Ability Hard of Hearing Memory Description 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,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 Maintenance 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 Impaired Gross Range of Motion Lower Extremity ROM Assessment Within Functional Limits Strength Lower Extremity Strength Assessment Right Impaired Hip 3+/5 Knee 3-/5 Sensation Assessment Sensation Gross Sensation WNL Muscle Tone Muscle Tone WNL Yes M6 PT-IP Treatment Start: 08/04/23 12:54 Freq: NEEDED Status: Active Protocol: Document 08/04/23 14:05 AB (Rec: 08/04/23 16:24 AB [id number]) Physical Therapy Treatment Education Education Provided Precautions,Safety M7 PT-IP Assessment and Plan Start: 08/04/23 12:54 Freq: NEEDED Status: Active Protocol: Document 08/04/23 14:05 AB (Rec: 08/04/23 16:24 AB [id number]) PT Summary Assessment and Plan Potential Rehabilitation Potential Fair Summary Impairments Pain,ROM,Strength,Balance, Coordination,Sensation,Tone, Cognition,Bed Mobility, Transfers,Gait,Activity Tolerance Progress Towards Goals Slow Progress due to Pain,Slow Progress due to Medical Issues,Slow Progress - Other Assessment Summary caregiver training conducted and further training is needed . spouse is not consistent with instructing and cueing pt during mobility and needs reminders herself regarding pt 's safety and back precautions . pt continue to require 2 person assist with mobility and max cues with all tasks. pt and spouse insistent on going home today and was educated regarding safety and both understood. spouse stated that they really need to go home today. will continue to assess progress. Goals Bed Mobility Goal Minimal Assistance Transfer Goal Minimal Assistance,Front Wheeled Walker Gait Goal Minimal Assistance,Front Wheel Walker Gait Distance 25 Other Goals improve bed mobility, transfers and ambulation using FWW ~ 100 ft SBA Days to Meet Goals 10 Frequency of Treatment Frequency Of Treatment Twice a Day Treatment Plan Physical Therapy Treatment Plan Bed Mobility Training,Transfer Training,Gait Training, Therapeutic Exercise,Balance Retraining,Post Op Education, Discharge Planning,Hot or Cold Pack,Neuromuscular Re-ed, Coordination Retraining,Manual Therapy Precautions Lumbar Precautions Log Roll,No Twisting,Limit Bending,Lifting Restriction of 10 lbs,Gait Belt above Incisional Area Recommendations To Nursing Amount of Assist Needed 2 Person Assist Discharge Recommendations PT Discharge Recommendations Home with 08/09 Assist Available,Home Health,SNF Rehab Transportation Needs at Discharge Wheelchair/Cabulance
--- NOTE | 2023-08-04 14:24 | CM.DANOTE ---
Addendum entered by Allyson Rodriguez MARCELLO 08/04/23 16:31: From ortho PA, want to keep pt another night. DC tomorrow pending mobility. Jalen approved priority boarding pass if/when dc home. [facility] updated RN. 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 Plans to see him first thing in morning. [facility] updated pt and spouse in room. report understanding, report they need to be home by 2pm tomorrow. hope to dc first thing after therapy tomorrow morning. P: hopeful for home tomorrow morning. CM team will complete priority boarding pass if dc home. SL Original Note: DCP Assessment Note Pt is a 77yo M here following planned TLIF with Dr. Benavides on 08.03.23 PCP Tony Gonzales Payer Medicare and Roger ARMENDARIZ reviewed EMR. Per PT/OT, rec SNF placement at this time. Per RN, pt very eager to dc home. Pt and spouse report they may even leave AMA to get home today. [facility] met with pt and spouse in room. Pt and spouse report they feel perfectly safe to go home. Pt and spouse claim that their next door neighbor is a physical therapist and plans to assist them at home. 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 Pt and spouse report they have had multiple surgeries and know what they are doing. They are hopeful for 4pm ferry and a priority boarding ferry pass. [facility] updated PT on hopes to go home today. After working with them again in the afternoon, PT reports that while it was better than this morning and he was able to mobilize better, she continues to recommend 24 2P vs SNF placement.. [facility] reached out to MIRA Rao to inquire about priority boarding pass/to share pt's desire to make the 4pm ferry. response pending. [facility] and RN met with spouse in community health. Spouse reports wanting to leave AMA but with priority boarding pass. This [facility] told her that pt is welcome to leave AMA but until there is an order or approval from ortho team, this [facility] cannot complete priority boarding pass. Spouse upset, stating I was promised a priority boarding pass and we were promised one night. RN offered AMA paperwork, however, spouse reports they don't want to leave without boarding pass. [facility] met with pt without spouse in room. Pt understands that it might be an early dc tomorrow. Remains hopeful for today, understands we are waiting for PA to get out of surgery. P: pending ortho PA, may dc today vs tomorrow morning. Hopeful for priority boarding pass. CM team will follow clsoely. MARCELLO Frederick Discharge Planning/Care Management Advanced directive, confirm from FAMILY Start: 08/03/23 14:18 Freq: Q24H Status: Active Protocol: Document 08/03/23 14:05 (Rec: 08/03/23 15:02 [id number]) Co-signed By Elizabet Anthony RN Advance Directive, confirm on record Time 14:05 Person contacted padmini Copy received No CM Discharge Assessment Start: 08/04/23 14:22 Freq: Status: Active Protocol: Document 08/04/23 14:22 (Rec: 08/04/23 14:24 [id number]) Discharge Planning Assessment Assigned Paper Coater MARCELLO Martinez DPOA/Assigned Designee Name elina Rutledge Contact Information [phone] Advance Directives? Yes Advance Directives on File No History Provided By Patient Prior Living Arrangements House Household Members spouse Independent with ADL's Yes Is patient alert and oriented? Yes DME Already Rented / Owned Wheelchair,FWW / Walker Discharge Plan Home Transportation Arrangement spouse in POV Whiteboard Updated in Patient Room with Yes name and ext. # of Paper Coater Review Status In Process Please Provide Date Initial DC 08/04/23 Assessment Was Performed Next Review Type Continued Stay Review Pre-Anesthesia Assessment Start: 07/29/23 12:39 Freq: Status: Complete Protocol: Document 07/29/23 12:39 CAB (Rec: 07/29/23 13:33 CAB [id number]) Pre-Anesthesia Assessment Preferred Name Meri or Andrea Patient Information Reviewed Via Phone Assessment Assessment Completed With Patient Diagnostic Results BMP/CMP,CBC,EKG Comment Labs @ [facility] , outside EKG scanned Primary Care Provider Saul Mcgowan Seen Specialist in Last 12 Months Yes Specialist Seen Orthopedist Primary Language Bhutanese Operations Staff Specialist Security Required No Height 170.18 cm Weight 72.575 kg Body Mass Index (BMI) 25.0 Hearing Ability Normal Visual Assist Magnifying Glass Dentition Type Partial- Lower,Full- Upper Barriers to Learning None Hx Anesthesia Reactions No Hx Family Anesthesia Reaction No Hx Malignant Hyperthermia No Hx Blood Transfusions No Anesthesia Review Requested No 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 No Does patient have NULL/SOB No Hx Sleep Apnea No Currently Taking a Beta Faustino No Can You Climb a Flight of Stairs Without Yes SOB Hx Chest Pain No Hx SOB No Hx Syncope or Dizziness No Anti-Coagulant Therapy No Has a Nuclear Reactor Engineer No Cardiac Testing No Hx Pacemaker/ICD No Pacemaker Rep Required? No Cardiac Clearance Received No Diet Type At Home Regular Dysphagia No Gastrointestinal Symptoms None Urinary Catheter Present No Hx Urinary Self Catheterization No Diabetes No Hx Drug Resistant Organism No Presence of External or Internal Medical Yes: Bilat eye IOLs Devices Received a COVID vaccine? Yes Received all doses? Yes Marital Status Lives With spouse Current Living Arrangements House Number of Floors (Floors) One Floor Support System Spouse Does the Patient Have Assistance After Yes Surgery Patient Discharge Plan Description Return Home Comment Pt advised one night length of stay per surgeon Feels Safe in Current Environment Yes Been Physically Hurt or Threatened By a No Person in Current Environment Do you have thoughts of harming yourself None or others? Are you currently considering suicide? No Do you have a plan to hurt yourself or No Plan others? Do You Have Any Spiritual Beliefs That No May Affect Your HC Choices? Do You Have Any Cultural Practices That No May Affect Your HC Choices? Who Can We Speak to About Patient's Care Family, friends Identifying Code for Release of Patient Declines to issue Information Health Care Proxy/Next of Kin Angelica () Health Care Proxy or [phone] Emergency Contact Name Angelica () Emergency Contact or [phone] Advance Directives? Yes Advance Directives on File No Requested Patient Bring Advanced Yes Directives DOS Power of Reprographics Associate Yes Power of Reprographics Associate Name Angelica () Power of Reprographics Associate or [phone] PAC Instructions Durable medical equipment, Medications to take/avoid, Nasal antibiotic,No ETOH/ petroleum product on skin DOS, NPO,Pre-surgical wash,Sensory aids,Sturdy shoes/comfortable clothes,Do not bring valuables and remove jewelry
[2023-08-04 20:00] VITALS: BP 133/67; PULSE 79; RESP 18; TEMP 36.4; O2SAT 94
[2023-08-04] MEDS: ONDANSETRON 4 MG ODT SL (20:49)
[2023-08-04] MEDS: SENNOSIDES 8.6 MG TABLET 17.2 MG PO (20:49)
[2023-08-05] MEDS: OXYCODONE IR 10 MG TABLET PO (05:05)
--- NOTE | 2023-08-05 06:56 | P.DS_ITS ---
History of Present Illness History of Present Illness Date Patient Seen: 08/05/23 Time Patient Seen: 06:56 Chief complaint: TLIF INPT Narrative: Operative Date/Time/Diagnoses Date of procedure: 08/03/23 Time of procedure: 10:15 Pre-op diagnosis: 1. 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 L3-4 foramen stenosis Post-op diagnosis: same Procedure & Clinicians Procedure: 1. L3-4 Postero-lateral and posterior interbody fusion 2. L3-4 interbody cage placement. 3. L3-4 decompressive laminectomy with bilateral facetecomies 4. L3-4 Posterior non-segmental instrumentation 5. Mcguffey of bone marrow from iliac crest 6. Utilization of microsurgical technique and operating microscope Same procedure as scheduled: Yes Indications: Patient has been having chronic back pain and worsening lumbar radiculopathy. Patient was found to have a L3-4 right far lateral disc herniation with migration causing significant lumbar radiculopathy correlating with his symptoms. Patient failed multiple conservative management with worsening pain weakness and numbness in his lower extremity. Patient has been having difficulty performing activity of daily living. After discussing risks benefits of treatment options, patient elected proceed with surgery. Surgeon: Benjamin Benavides Process Plant Operator: Zee Denney Click Yes if Unassisted: No Anesthesia Type: General Operative Notes Closure Type: primary Specimen(s): none sent Prosthetic devices, grafts, tissues, transplants, or devices: Globus revolve screws, Rise cage Estimated Blood Loss (mL): 50 Blood products transfused: none Discharge Providers Provider Date of admission: 08/03/23 07:32 Discharge Date: 08/05/23 Consults: 08/03/23 14:01 Consult to Occupational Therapy Evaluate & Treat Comment: Physician Instructions: Evaluate and treat Consult to Physical Therapy Evaluate & Treat Comment: Physician Instructions: Evaluate and Treat Discharge provider: Zee Denney PA-C Summary Hospital Course Discharge Diagnosis: 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 On the morning of POD# 2, he very much wanted to go home, but had not yet been cleared by PT for home w/ 1 person assist. 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 He was eating and voiding without difficulty, but his pain was only fairly controlled with oral medication. He c/o low back pain, denied LE pain. Exam Vital Signs (past 8 hours): Oxygen Delivery Method Room Air Oxygen Flow Rate 0 Narrative Exam Narrative: 5/5 strength in hip flexors, quadriceps, hamstrings, DF, PF, EHL bilaterally. Sensation to light touch intact throughout BLE, calves soft and compressible. Dressings placed intraoperatively are CDI. 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 Discharge Plan Discharge Plan Patient Disposition: Home Provider Discharge Comment: Pt received oxycodone rx preop. Discharge orders & Medications Prescriptions: New docusate sodium 100 mg Capsule 100 mg PO BID PRN (Reason: constipation) Qty: 60 1RF cyclobenzaprine 10 mg Tablet 5 mg PO Q8HR PRN (Reason: Muscle Spasm) Qty: 30 0RF Continued Dilantin Extended 100 MG capsule 100 mg PO BID Qty: 0 Keppra 1,000 MG tablet 1,000 mg PO BID Qty: 0 Vitamin D3 2,000 UNIT tablet 1 tab PO QDAY Qty: 0 acetaminophen 650 mg Tablet Extended Release 1,300 mg PO TID Acetaminophen PM 25-500 mg Tablet 4 tab PO BEDTIME Follow up/Referrals: Benjamin Benavides MD [Physician] - 08/17/23 10:40 am (Follow up w/ Saritha Ruiz PA-C, at [facility] office in [place].) Diet/Activity/Treatments Diet: Diet as Tolerated Activity: No deep bending or twisting at the waist. No lifting more than 10 pounds. Cold/Heat Therapy: Heating pad to low back as needed for pain. Skin/Wound/Dressing Care Report to your healthcare provider any signs of infection, such as:: chills, fever, night sweats, unusual drainage and unusual redness Dressing: May shower. Keep dressing as dry as possible. If dressing becomes wet or dirty, may remove and replace with clean, dry gauze. No bathing or otherwise soaking incisions. Do not apply any creams, lotions, or ointments to incisions. Visit Report/Discharge Packet Instructions: DI for Prescription Opioid Use, DI for Transforaminal Lumbar Interbody Fusion Stand Alone Forms: Patient Portal/API, Stroke Signs & Symptoms, Surgery Discharge Quality VTE Deep Vein Thrombosis/Pulmonary Embolism Present on Admission: No
[2023-08-05 08:00] VITALS: BP 132/62; PULSE 86; RESP 14; TEMP 36.6; O2SAT 96
--- NOTE | 2023-08-05 08:15 | PT.IPTN ---
Current Diagnoses Spinal stenosis, lumbar region without neurogenic claudication (08/03/23) Intervertebral disc disorders with radiculopathy, lumbar region (08/03/23) Surgery Performed Operation Date: 08/03/23 09:15 Actual Procedures p L3-4 TLIF - Benjamin Benavides MD Physical Therapy Treatment Note M2 PT-IP Current Condition Start: 08/04/23 12:54 Freq: NEEDED Status: Active Protocol: Document 08/04/23 09:10 AB (Rec: 08/04/23 13:07 AB [id number]) Physical Therapy Current Condition Current Condition Evaluation Date 08/04/23 Treatment Diagnosis s/p L3-4 TLIF; difficulty in walkiing Onset Date 08/03/23 M3 PT-IP Subjective Start: 08/04/23 12:54 Freq: NEEDED Status: Active Protocol: Document 08/05/23 08:44 TS (Rec: 08/05/23 09:06 TS [id number]) Subjective Physical Therapy Visit Type Type Treatment Note Visit Start Time 08:15 Visit Stop Time 08:43 Number of GOLF BALL TRIMMER Visits 28 Physical Therapy Visit Comments Patient Comments Pt found resting in chair, is agreeable to PT. Therapy Pain Assessment Pain When Pain Assessed At Rest Pain Present Pain Present Pain Reported M4 PT-IP Mobility and Gait Start: 08/04/23 12:54 Freq: NEEDED Status: Active Protocol: Document 08/05/23 08:44 TS (Rec: 08/05/23 09:06 TS [id number]) PT-Bed Mobility Assessment Rolling Level of Assist Minimal Assistance,1 Person Assistance Supine to Sit Supine to Sit Moderate Assistance,1 Person Assistance Sit to Supine Sit to Supine Moderate Assistance,1 Person Assistance Scooting Scooting to Edge of Bed Standby Assistance PT-Transfer Assessment Sit to and From Stand Sit to and from Stand Contact Guard Assistance, Minimal Assistance,1 Person Assistance Equipment Transfer Assistive Device Gait Belt,Front Wheeled Walker Orthotic/Prosthetic Devices or Brace: No Comments Mobility Comments Pt recalled 2/3 spinal precautions prior to mobility( did not recall no twisting). Spouse donned gait belt. STS from chair Lea with cues for pushing from arms of chair. Pt ambulated with FWW ~30'CGA/ SBA, pt knees tend to give way , requires cues for quad act, pt improves. Pt sat on EOB, required max cues for sit to supine and ModA for LE's into bed. Supine to sit Max cues for sequencing and ModA for uprighting trunk from spouse, pt demonstrated good awareness of spinal precautions. STS from bed CGA from spouse with FWW. Pt sat in chair, recalled 1/3 spinal precautions, spouse recalled 3/3. Pt was left in chair, all needs met. Gait Assessment Gait Gait Assistance Required: Contact Guard Assist Distance (Feet) 30 Able to Maintain Weight Bearing Status Yes During Gait Assistive Devices Assistive Device Gait Belt,Front Wheeled Walker Orthotic/Prosthetic Devices or Brace: No Gait Deviations General Gait Pattern Antalgic,Decreased Stride Length,Decreased Feet Clearance Factors Limiting Gait Function Factors Limiting Gait Function Decreased Activity Tolerance, Decreased Strength,Difficulty Following Directions,Limited Range of Motion,Pain,Poor Balance,Poor Safety Awareness PT-Balance Assessment Sitting Balance and Reactions Static Sitting Balance Ability Good Dynamic Sitting Balance Ability Fair Standing Balance and Reactions Static Standing Balance Ability Fair Dynamic Standing Balance Ability Fair Device Used FWW M5 PT-IP Objective Assessments Start: 08/04/23 12:54 Freq: NEEDED Status: Active Protocol: Document 08/04/23 09:10 AB (Rec: 08/04/23 13:07 AB [id number]) Orientation Orientation/Cognition Level of Alertness Confusional State Orientation Name,Place,Situation Language Function Ability Hard of Hearing Memory Description 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,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 Gross Range of Motion Lower Extremity ROM Assessment Within Functional Limits Strength Lower Extremity Strength Assessment Right Impaired Hip 3+/5 Knee 3-/5 Sensation Assessment Sensation Gross Sensation WNL Muscle Tone Muscle Tone WNL Yes M6 PT-IP Treatment Start: 08/04/23 12:54 Freq: NEEDED Status: Active Protocol: Document 08/05/23 08:44 TS (Rec: 08/05/23 09:06 [id number]) Physical Therapy Treatment Education Education Provided Precautions,Safety M7 PT-IP Assessment and Plan Start: 08/04/23 12:54 Freq: NEEDED Status: Active Protocol: Document 08/05/23 08:44 TS (Rec: 08/05/23 09:06 [id number]) PT Summary Assessment and Plan Potential Rehabilitation Potential Fair Summary Impairments Pain,ROM,Strength,Balance, Coordination,Sensation,Tone, Cognition,Bed Mobility, Transfers,Gait,Activity Tolerance Progress Towards Goals Progressing Toward Goals Assessment Summary Andrea is making some progress with his mobility this session. He is Lea for STS from lower surface and CGA from higher surface of bed with FWW. He progressed his gait to ~30'CGA with FWW. Pt's knees to give with further progression of gait, improves balance when provided cues for postur and quad act. He made good progress with bed mobility. He demonstrates good awareness of spinal precautions with bed mobility. He requried ModA into bed and ModA for sitting up. Spouse was instructed in and performed donning of gait belt , STS, and bed mobility. pt has diffiuclty recalling precautions even when asked multiple times in session. Spouse did not recall 3/3 spinal precautions. PT is recommending Home 24/7 vs SNF. Pt could benefit from SNF to improve strength in LE's and progress functional mobility. Pt has w/c and recommended w/c follow into house and x2 PA, spouse and pt agreed. Goals Bed Mobility Goal Minimal Assistance Transfer Goal Minimal Assistance,Front Wheeled Walker Gait Goal Minimal Assistance,Front Wheel Walker Gait Distance 25 Other Goals improve bed mobility, transfers and ambulation using FWW ~ 100 ft SBA Days to Meet Goals 10 Frequency of Treatment Frequency Of Treatment Twice a Day Treatment Plan Physical Therapy Treatment Plan Bed Mobility Training,Transfer Training,Gait Training, Therapeutic Exercise,Balance Retraining,Post Op Education, Discharge Planning,Hot or Cold Pack,Neuromuscular Re-ed, Coordination Retraining,Manual Therapy Precautions Lumbar Precautions Log Roll,No Twisting,Limit Bending,Lifting Restriction of 10 lbs,Gait Belt above Incisional Area Recommendations To Nursing Amount of Assist Needed 1 Person Assist Discharge Recommendations PT Discharge Recommendations Home with 24/7 Assist Available,Home Health,SNF Rehab,Home vs SNF Transportation Needs at Discharge Wheelchair/Cabulance
[2023-08-05] MEDS: DOCUSATE 100 MG CAPSULE PO (08:27)
[2023-08-05] MEDS: PHENYTOIN ER 100 MG CAPSULE PO (08:27)
[2023-08-05] MEDS: CHOLECALCIFEROL (VITAMIN D3) 1,000 UNIT TABLET 2000 UNIT PO (08:28)
[2023-08-05] MEDS: levETIRAcetam 250 MG TABLET 1000 MG PO (08:28)
--- NOTE | 2023-08-05 09:28 | CM.DPNOTE ---
DCP Note INSTANT PRINTER OPERATOR reviewed EMR. Per ortho PA, dc order in. Per GENER[employer] MANAGER ROAD PRODUCTION Kvng, pt mobilized better this morning. Recommending utilizing w/c for the longer distance to get into the home. INSTANT PRINTER OPERATOR completed and printed priority boarding pass, placed with DCP paperwork with nursing. INSTANT PRINTER OPERATOR met with pt and spouse in room. Remain eager to leave as soon as possible. Continues to communicate their frustration with not leaving after one day post op but were appreciative of this supervisor diagnostic efforts to communicate with them. Deny other CM needs. Per nursing staff, pt did well getting in to car. INSTANT PRINTER OPERATOR discussed case with lead social science manager for review as an example for suggestion for continued future improvements. P: pt to dc home with family support today in [facility] and [facility]. CM team will continue to follow as needed. MARCELLO Frederick
== END 2023-08-05 09:05 | disposition home or self-care (01) | DRG 460 ==
LOC: AC 13:41 → ICU 14:09
PROVIDERS: Admitting Provider Orthopaedic Surgery Orthopaedic Surgery of the Spine; Family Provider Student in an Organized Health Care Education/Training Program; Referring Provider Orthopaedic Surgery Orthopaedic Surgery of the Spine; Visit Provider Orthopaedic Surgery Orthopaedic Surgery of the Spine
PROC: 0SG0071 Fusion of Lumbar Vertebral Joint with Autologous Tissue Substitute, Posterior Approach, Posterior Column, Open Approach (ICD-10-PCS; principal; 2023-08-03 09:15)
DX: M51.16 Intervertebral disc disorders with radiculopathy, lumbar region (principal); M48.061 Spinal stenosis, lumbar region without neurogenic claudication; Z87.891 Personal history of nicotine dependence; G40.909 Epilepsy, unspecified, not intractable, without status epilepticus
CPT/HCPCS: 36415; 72100; 76000; 85014; 85018; 97163; 97165; 97530; C1831; C9290; J0171; J0690; J1100; J1170; J2405; J2704; J3010; J3410

== ENCOUNTER 2023-09-15 16:47 | Observation (INO) | payer MEDICARE, OTHER, SELFPAY ==
[2023-08-03 08:20] VITALS: BMI 25.0
[2023-09-15] VITALS (21 sets, daily range): BP systolic 129–180; BP diastolic 61–93; PULSE 66–95; RESP 17–30; TEMP 36.9; O2SAT 83–97; BMI 23.6
--- NOTE | 2023-09-15 17:38 | DI.MRI.S_ITS ---
PROCEDURE: MR LUMBAR SPINE WO CON INDICATIONS: R LE weakness, s/p back surgery July TECHNIQUE: Noncontrast sagittal T1 spin echo and T2 fast echo, sagittal STIR, and T2 fast spin echo through the lumbar spine. In cases with scoliosis, additional coronal T2 fast spin echo may be performed. COMPARISON: [facility], MR, MR LUMBAR SPINE WO CON, 07/10/2023, 9:12. FINDINGS: Image quality: Excellent. Alignment and Curvature: There is normal bony alignment. Bone Marrow: Mild bony edema within the L3 and L4 vertebral bodies, likely postoperative in nature. Bony edema surrounding a prominent Schmorl's node at L2, similar to prior. Spinal Cord: Conus medullaris terminates at the L2 level. Visualized cord demonstrates normal signal and size. Paraspinous Soft Tissues: No paravertebral masses. Edematous change in the surgical bed. T12-L1: Normal appearance. L1-L2: Disc desiccation. Broad-based disc bulge. Tiny facet effusions. L2-L3: Disc desiccation, broad-based disc bulge narrowing the lateral recesses. Ligamentum flavum hypertrophy, facet hypertrophy, small left facet effusion. L3-L4: Interbody fusion. L4-L5: Broad-based disc bulge, ligamentum flavum hypertrophy, facet hypertrophy, left facet effusion. Mild bilateral neural foraminal narrowing. L5-S1: Severe disc height loss. Central disc protrusion. Mild facet hypertrophy. IMPRESSION: Surgical fusion L3-4, without hardware complication. No fluid collection. Multilevel degenerative disc disease and facet arthrosis, not significantly changed from prior. No severe spinal canal or neural foraminal narrowing. Dictated by: Bakari Foster M.D. on 09/15/2023 at 19:05 Approved by: Bakari Foster M.D. on 09/15/2023 at 19:10
--- NOTE | 2023-09-15 17:43 | ED.FALL ---
HPI - Fall <Katarzyna Singh, - Last Filed: 09/17/23 08:20> General Chief Complaint: Fall Stated Complaint: numbness/weakness Time Seen by Provider: 09/15/23 17:38 Source: patient and EMS Mode of arrival: EMS History of Present Illness HPI Narrative: 77-year-old history of seizure disorder with grand mal seizures prior back surgery with Dr. Lagunas in July. Patient states last night he got up to go to the bathroom his legs got weak and shaky he fell. He has had persistent weakness in his right lower extremity. He states he was doing well until that point he denies any back pain, denies any weakness of his upper extremities no facial droop, no fevers no headache, states he has not had any issues with his incisions are healing. He has not had any chest pain or shortness of breath, no loss of bowel or bladder control, no numbness tingling or weakness that he would appreciates. Patient was seen at [facility] in Thursday. Was noted to have significant weakness in his right lower extremity had concern and had CT L-spine there which showed no acute osseous abnormalities but interval posterior lumbar interbody fusion L3-4. Also had labs including CBC CMP Dilantin and lactate these were faxed over prior to patient's arrival. Significant time in between patient's transfer secondary to requiring transport off [facility] and the [facility] system. Patient states only home medications or Keppra and Dilantin. Has not allergy to tobramycin. States no other surgeries besides his lumbar fusion. Patient's former smoker, drinks 1 glass of wine daily, no recreational drugs. Lives in [place]. Spoke with Dr. Salazar [place] who sent patient. He had discussed with Dr. Lagunas who performed patient's spinal surgery here attempting direct admission but was asked for patient to come through the ER for MR 1st. Related Data Home Medications Medication Instructions Recorded Confirmed cholecalciferol (vitamin D3) 50 1 tab PO QDAY #0 tabs 10/10/15 09/16/23 mcg (2,000 unit) tablet (Vitamin D3) acetaminophen 650 mg 1,300 mg PO Q6HR PRN Pain (Scale 07/29/23 09/16/23 tablet,extended release Score 1-3) diphenhydramine 25 4 tab PO BEDTIME 07/29/23 09/16/23 mg-acetaminophen 500 mg tablet (Acetaminophen PM) Dilantin 200 mg PO DAILY 09/16/23 09/16/23 doxycycline monohydrate 100 mg PO DAILY 09/16/23 09/16/23 levetiracetam 750 mg tablet 750 mg PO DAILY 09/16/23 09/16/23 (Keppra) Allergies Allergy/AdvReac Type Severity Reaction Status Date / Time tobramycin [TOBRAMYCIN] Allergy Unknown EYE Verified 08/03/23 08:21 GTTS-ERYTHEMA TO EYE AND EYELID, EDEMA TO EYELID Review of Systems <Katarzyna Singh DO - Last Filed: 09/17/23 08:20> Review of Systems ROS Unobtainable: All systems reviewed & are unremarkable except as noted in HPI and below Patient History <Katarzyna Singh DO - Last Filed: 09/17/23 08:20> Medical History Radiculopathy Lumbar disc herniation Bladder cancer (2020) Arthritis Seizure disorder (~1983) Surgical History Hx of tonsillectomy H/O transurethral resection of bladder tumor (TURBT) Hx of bilateral cataract extraction Social History household members: spouse Smoking Status: Former smoker alcohol intake: current Smoking Status: Former smoker alcohol intake frequency: 0-2 drinks per day Substance Use Type: does not use Exam <Katarzyna Singh DO - Last Filed: 09/17/23 08:20> Narrative Exam Narrative: GEN: well nourished, well appearing male, alert and oriented x 3, patient appears to be in mild distress. HEENT: Atraumatic, pupils are equal round reactive to light, extraocular movements are intact, nares are clear, there is no conjunctival pallor. Throat is clear without any exudates, erythema, tonsillar enlargement or uvular deviation, no facial droop HEART: Regular rate and rhythm without murmur, clicks, rubs. No carotid bruits, pulses are equal in upper and lower extremities LUNGS:Lungs clear to auscultation, no wheezes, rales, crackles, chest moves symmetrically ABD:bowel sounds normal, soft, non-tender, no guarding, rebound, rigidity, no masses noted, no hepatosplenomegaly :No CVA tenderness MSCL: Non-tender, no muscle atrophy, muscles strength 5/5 upper left lower extremity, patient can not lift his leg against gravity on the right, falls immediately to the bed. Unable to perform heel-sethi with a right lower extremity. Does have sensation to touch. Patient's does not have any drift with bilateral upper extremities is able to perform [id number] bilaterally. NEURO:CN 2-12 intact, sensation normal. Initial Vital Signs Initial Vital Signs: Vital Signs Pulse Rate 78 09/15/23 17:17 Pulse Oximetry 96 09/15/23 17:17 <Katarzyna Linn MD - Last Filed: 09/16/23 00:13> Initial Vital Signs Initial Vital Signs: Vital Signs Pulse Rate 78 09/15/23 17:17 Pulse Oximetry 96 09/15/23 17:17 Course <Katarzyna Singh DO - Last Filed: 09/17/23 08:20> Orders Ordered: Acetaminophen (Acetaminophen 325 Mg Tablet) 650 mg PO Q6H PRN PRN Reason: Fever/Mild Pain (1-3) Aspirin (Aspirin Ec 81 Mg Tablet) 81 mg PO DAILY [facility] Last Admin: 09/16/23 11:44 Dose: 81 mg Documented By: YAMIL Atorvastatin Calcium (Atorvastatin 20 Mg Tablet) 40 mg PO BEDTIME [facility] Last Admin: 09/16/23 20:38 Dose: 40 mg Documented By: REYNA Cyclobenzaprine HCl (Cyclobenzaprine 10 Mg Tablet) 5 mg PO Q8HR PRN PRN Reason: Muscle Spasm Doxycycline Hyclate (Doxycycline Hyclate 100 Mg Tablet) 100 mg PO DAILY [facility] Enoxaparin Sodium (Enoxaparin 40 Mg/0.4 Ml Syringe) 40 mg SUBCUT DAILY [facility] Last Admin: 09/16/23 11:44 Dose: 40 mg Documented By: YAMIL Levetiracetam (Levetiracetam 250 Mg Tablet) 750 mg PO 1999 [facility] Last Admin: 09/16/23 20:39 Dose: 750 mg Documented By: REYNA Naloxone HCl (Naloxone 0.4 Mg/Ml Vial) 0.2 mg IV Q2MIN PRN PRN Reason: Opiate Reversal Stored In Pharmacy 0 each PO . [facility] Ondansetron HCl (Ondansetron 4 Mg Odt) 4 mg PO Q8HR PRN PRN Reason: Nausea And Vomiting Phenytoin Sodium (Phenytoin Er 100 Mg Capsule) 200 mg PO DAILY [facility] Last Admin: 09/16/23 11:44 Dose: 200 mg Documented By: YAMIL Prednisone (Prednisone 20 Mg Tablet) 40 mg PO DAILY [facility] Last Admin: 09/16/23 15:57 Dose: 40 mg Documented By: YAMIL Sennosides (Sennosides 8.6 Mg Tablet) 17.2 mg PO BEDTIME PRN PRN Reason: constipation Vitamin D (Cholecalciferol (Vitamin D3) 1,000 Unit Tablet) 1,000 unit PO DAILY [facility] Last Admin: 09/16/23 11:44 Dose: 1,000 unit Documented By: YAMIL Discontinued Medications Levetiracetam (Levetiracetam 250 Mg Tablet) 1,000 mg PO BID [facility] Last Admin: 09/16/23 10:38 Dose: Not Given Documented By: YAMIL Levetiracetam (Levetiracetam 250 Mg Tablet) 750 mg PO DAILY [facility] Last Admin: 09/16/23 10:38 Dose: Not Given Documented By: YAMIL Phenytoin Sodium (Phenytoin Er 100 Mg Capsule) 100 mg PO BID [facility] Last Admin: 09/16/23 10:39 Dose: Not Given Documented By: YAMIL Vital Signs Vital signs: Vital Signs - 8 hr 09/15/23 17:17 09/15/23 17:19 09/15/23 17:19 Temperature Pulse Rate 78 80 Respiratory Rate Blood Pressure 180/77 H Pulse Oximetry 96 94 Oxygen Delivery Method 09/15/23 17:30 09/15/23 17:30 09/15/23 17:30 Temperature 98.5 F Pulse Rate 82 77 Respiratory Rate 17 21 Blood Pressure 180/77 H 159/63 H Pulse Oximetry 95 87 L Oxygen Delivery Method Room Air 09/15/23 18:00 09/15/23 18:00 09/15/23 18:41 Temperature Pulse Rate 74 87 Respiratory Rate 22 Blood Pressure 152/72 H Pulse Oximetry 95 97 Oxygen Delivery Method 09/15/23 18:42 09/15/23 18:42 09/15/23 19:00 Temperature Pulse Rate 86 76 Respiratory Rate Blood Pressure 164/78 H Pulse Oximetry 97 95 Oxygen Delivery Method Room Air Room Air 09/15/23 19:00 09/15/23 19:40 09/15/23 19:52 Temperature Pulse Rate 95 H 86 Respiratory Rate Blood Pressure 143/70 H Pulse Oximetry 83 L 96 Oxygen Delivery Method 09/15/23 19:52 09/15/23 20:00 09/15/23 20:00 Temperature Pulse Rate 75 Respiratory Rate Blood Pressure 160/74 H 129/80 Pulse Oximetry 96 Oxygen Delivery Method 09/15/23 20:30 09/15/23 20:34 09/15/23 20:34 Temperature Pulse Rate 73 76 Respiratory Rate Blood Pressure 130/93 H Pulse Oximetry 95 95 Oxygen Delivery Method 09/15/23 21:00 09/15/23 21:00 09/15/23 21:20 Temperature Pulse Rate 67 73 Respiratory Rate Blood Pressure 137/63 Pulse Oximetry 94 95 Oxygen Delivery Method 09/15/23 21:30 09/15/23 21:41 09/15/23 22:00 Temperature Pulse Rate 72 66 Respiratory Rate 17 Blood Pressure 140/61 Pulse Oximetry 97 94 Oxygen Delivery Method 09/15/23 22:01 09/15/23 22:01 09/15/23 22:30 Temperature Pulse Rate 66 72 Respiratory Rate 21 30 H Blood Pressure 176/83 H Pulse Oximetry 95 94 Oxygen Delivery Method 09/15/23 22:30 09/15/23 23:00 09/15/23 23:00 Temperature Pulse Rate 70 Respiratory Rate 21 Blood Pressure 152/73 H 157/72 H Pulse Oximetry 95 Oxygen Delivery Method <Katarzyna Linn MD - Last Filed: 09/16/23 00:13> Orders Ordered: Acetaminophen (Acetaminophen 325 Mg Tablet) 650 mg PO Q6H PRN PRN Reason: Fever/Mild Pain (1-3) Aspirin (Aspirin Ec 81 Mg Tablet) 81 mg PO DAILY [facility] Last Admin: 09/16/23 11:44 Dose: 81 mg Documented By: YAMIL Atorvastatin Calcium (Atorvastatin 20 Mg Tablet) 40 mg PO BEDTIME [facility] Last Admin: 09/16/23 20:38 Dose: 40 mg Documented By: CT Cyclobenzaprine HCl (Cyclobenzaprine 10 Mg Tablet) 5 mg PO Q8HR PRN PRN Reason: Muscle Spasm Doxycycline Hyclate (Doxycycline Hyclate 100 Mg Tablet) 100 mg PO DAILY [facility] Enoxaparin Sodium (Enoxaparin 40 Mg/0.4 Ml Syringe) 40 mg SUBCUT DAILY [facility] Last Admin: 09/16/23 11:44 Dose: 40 mg Documented By: YAMIL Levetiracetam (Levetiracetam 250 Mg Tablet) 750 mg PO 2000 [facility] Last Admin: 09/16/23 20:39 Dose: 750 mg Documented By: REYNA Naloxone HCl (Naloxone 0.4 Mg/Ml Vial) 0.2 mg IV Q2MIN PRN PRN Reason: Opiate Reversal Stored In Pharmacy 0 each PO . [facility] Ondansetron HCl (Ondansetron 4 Mg Odt) 4 mg PO Q8HR PRN PRN Reason: Nausea And Vomiting Phenytoin Sodium (Phenytoin Er 100 Mg Capsule) 200 mg PO DAILY [facility] Last Admin: 09/16/23 11:44 Dose: 200 mg Documented By: YAMIL Prednisone (Prednisone 20 Mg Tablet) 40 mg PO DAILY [facility] Last Admin: 09/16/23 15:57 Dose: 40 mg Documented By: YAMIL Sennosides (Sennosides 8.6 Mg Tablet) 17.2 mg PO BEDTIME PRN PRN Reason: constipation Vitamin D (Cholecalciferol (Vitamin D3) 1,000 Unit Tablet) 1,000 unit PO DAILY [facility] Last Admin: 09/16/23 11:44 Dose: 1,000 unit Documented By: YAMIL Discontinued Medications Levetiracetam (Levetiracetam 250 Mg Tablet) 1,000 mg PO BID [facility] Last Admin: 09/16/23 10:38 Dose: Not Given Documented By: YAMIL Levetiracetam (Levetiracetam 250 Mg Tablet) 750 mg PO DAILY [facility] Last Admin: 09/16/23 10:38 Dose: Not Given Documented By: YAMIL Phenytoin Sodium (Phenytoin Er 100 Mg Capsule) 100 mg PO BID [facility] Last Admin: 09/16/23 10:39 Dose: Not Given Documented By: YAMIL Vital Signs Vital signs: Vital Signs - 8 hr 09/15/23 17:17 09/15/23 17:19 09/15/23 17:19 Temperature Pulse Rate 78 80 Respiratory Rate Blood Pressure 180/77 H Pulse Oximetry 96 94 Oxygen Delivery Method 09/15/23 17:30 09/15/23 17:30 09/15/23 17:30 Temperature 98.5 F Pulse Rate 82 77 Respiratory Rate 17 21 Blood Pressure 180/77 H 159/63 H Pulse Oximetry 95 87 L Oxygen Delivery Method Room Air 09/15/23 18:00 09/15/23 18:00 09/15/23 18:41 Temperature Pulse Rate 74 87 Respiratory Rate 22 Blood Pressure 152/72 H Pulse Oximetry 95 97 Oxygen Delivery Method 09/15/23 18:42 09/15/23 18:42 09/15/23 19:00 Temperature Pulse Rate 86 76 Respiratory Rate Blood Pressure 164/78 H Pulse Oximetry 97 95 Oxygen Delivery Method Room Air Room Air 09/15/23 19:00 09/15/23 19:40 09/15/23 19:52 Temperature Pulse Rate 95 H 86 Respiratory Rate Blood Pressure 143/70 H Pulse Oximetry 83 L 96 Oxygen Delivery Method 09/15/23 19:52 09/15/23 20:00 09/15/23 20:00 Temperature Pulse Rate 75 Respiratory Rate Blood Pressure 160/74 H 129/80 Pulse Oximetry 96 Oxygen Delivery Method 09/15/23 20:30 09/15/23 20:34 09/15/23 20:34 Temperature Pulse Rate 73 76 Respiratory Rate Blood Pressure 130/93 H Pulse Oximetry 95 95 Oxygen Delivery Method 09/15/23 21:00 09/15/23 21:00 09/15/23 21:20 Temperature Pulse Rate 67 73 Respiratory Rate Blood Pressure 137/63 Pulse Oximetry 94 95 Oxygen Delivery Method 09/15/23 21:30 09/15/23 21:41 09/15/23 22:00 Temperature Pulse Rate 72 66 Respiratory Rate 17 Blood Pressure 140/61 Pulse Oximetry 97 94 Oxygen Delivery Method 09/15/23 22:01 09/15/23 22:01 09/15/23 22:30 Temperature Pulse Rate 66 72 Respiratory Rate 21 30 H Blood Pressure 176/83 H Pulse Oximetry 95 94 Oxygen Delivery Method 09/15/23 22:30 09/15/23 23:00 09/15/23 23:00 Temperature Pulse Rate 70 Respiratory Rate 21 Blood Pressure 152/73 H 157/72 H Pulse Oximetry 95 Oxygen Delivery Method MDM - Fall <Katarzyna Singh, - Last Filed: 09/17/23 08:20> Lab Data 09/16/23 05:46 09/16/23 05:46 Labs: Lab Results 09/15/23 Range/Units 17:22 WBC 8.1 (4.5-11.0) X10^3/uL RBC 3.73 L (4.5-5.9) X10^6/uL Hgb 13.0 L (13.5-17.5) g/dL Hct 37.3 L (41-53) % MCV 100.2 H (80-100) fL MCH 34.8 H (26-34) PG MCHC 34.7 (30-36) % RDW 13.4 (11.6-14.8) % Plt Count 256 (150-400) X10^3/uL Neut % (Auto) 73.5 (50-75) % Lymph % (Auto) 8.6 L (25-40) % [place] % (Auto) 16.7 H (3-14) % Eos % (Auto) 0.1 L (2-4) % Baso % (Auto) 1.1 (0-2) % Neut # (Auto) 5900 (4560-1085) /uL Lymph # (Auto) 700 L (4392-1302) /uL [place] # (Auto) 1400 H (0-900) /uL Eos # (Auto) 0 (0-450) /uL Baso # (Auto) 100 (0-100) /uL Sodium 130 L (137-145) mmol/L Potassium 4.6 (3.4-5.1) mmol/L Chloride 104 (98-107) mmol/L Carbon Dioxide 19 L (22-32) mmol/L BUN 15 (9-20) mg/dL Creatinine 0.76 (0.66-1.25) mg/dL Estimated GFR > 60 (>60) mL/min BUN/Creatinine Ratio 19.7 (6-22) Glucose 98 (80-110) mg/dL Calcium 8.5 (8.4-10.2) mg/dL Total Bilirubin 0.6 (0.2-1.3) mg/dL AST 32 (17-59) IU/L ALT 19 (<50) IU/L Alkaline Phosphatase 81 (38-126) U/L Total Protein 6.0 L (6.3-8.2) g/dL Albumin 3.7 (3.5-5.0) g/dL Globulin 2.3 (1.7-4.1) g/dL Albumin/Globulin Ratio 1.6 (1.0-2.8) MDM Narrative Medical decision making narrative: 77-year-old male history of grand mal seizure disorder on Keppra and Dilantin with right lower extremity weakness onset overnight, patient has had greater than 12 hours of symptoms. Patient was sent from [place], there was concern that patient is having complications from back surgery but he does not have any pain no signs of infection was sudden onset last night. MR L-spine was obtained is negative any acute changes or clearly explained symptoms patient does not have any pain, no cauda equina, he does have weakness in his right lower extremity which he describes as new. [place] appropriate head CT and CT angio to rule out stroke or other potential causes. Labs at outside facility were reviewed White count of 9.3 hemoglobin of 13 platelets of 2 60s, sodium 136 potassium 4 1 chloride 100 CO2 26 anion gap is 10, glucose is 101 BUN 16 creatinine 1.12, LFTs are negative magnesium is 1.9, Dilantin is set 6.2 troponins less than 0.01 CT abdomen pelvis shows no acute osseous abnormality of the lumbar spine interval prior lumbar interbody fusion. MR L[facility]sp[facility] at [facility] shows surgical fusion L3-4 without hardware complication no fluid collection multilevel degenerative disc disease and facet arthrosis not significantly changed from prior no severe spinal canal or neural foraminal narrowing. Patient signed out to Dr. Linn while head and CT angio were pending. Patient is far outside window for potential tPA. Dr. Linn: Care of patient is signed out to me by daytime physician. Independent review of patient and chart performed by myself. Patient reports several weeks of progressive left lower extremity weakness. He states that he came today because he fell because he could not move his left leg. Patient states he has a history of brain tumor in the past. He states that it was at least 25 years ago, he was not remember what kind of tumor he had, but states that he did not have any chemo or radiation following his procedure. He states that his only medications are Keppra and Dilantin, he was not take aspirin or Plavix or any other medications. Pending CT brain and CT angio imaging. 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 associated stenosis present. Case discussed with [facility]. They recommend starting baby aspirin daily as well as 40 mg of Lipitor daily. Since he has a history of brain tumor they recommended an MRI of the brain with and without contrast, however patient does not qualify for any acute interventions based on the chronicity of his symptoms. Patient to be admitted for further treatment of his condition. <Katarzyna Linn MD - Last Filed: 09/16/23 00:13> Lab Data Labs: Lab Results 09/15/23 Range/Units 17:22 WBC 8.1 (4.5-11.0) X10^3/uL RBC 3.73 L (4.5-5.9) X10^6/uL Hgb 13.0 L (13.5-17.5) g/dL Hct 37.3 L (41-53) % MCV 100.2 H (80-100) fL MCH 34.8 H (26-34) PG MCHC 34.7 (30-36) % RDW 13.4 (11.6-14.8) % Plt Count 256 (150-400) X10^3/uL Neut % (Auto) 73.5 (50-75) % Lymph % (Auto) 8.6 L (25-40) % [place] % (Auto) 16.7 H (3-14) % Eos % (Auto) 0.1 L (2-4) % Baso % (Auto) 1.1 (0-2) % Neut # (Auto) 5900 (8635-3467) /uL Lymph # (Auto) 700 L (0664-0001) /uL [place] # (Auto) 1400 H (0-900) /uL Eos # (Auto) 0 (0-450) /uL Baso # (Auto) 100 (0-100) /uL Sodium 130 L (137-145) mmol/L Potassium 4.6 (3.4-5.1) mmol/L Chloride 104 (98-107) mmol/L Carbon Dioxide 19 L (22-32) mmol/L BUN 15 (9-20) mg/dL Creatinine 0.76 (0.66-1.25) mg/dL Estimated GFR > 60 (>60) mL/min BUN/Creatinine Ratio 19.7 (6-22) Glucose 98 (80-110) mg/dL Calcium 8.5 (8.4-10.2) mg/dL Total Bilirubin 0.6 (0.2-1.3) mg/dL AST 32 (17-59) IU/L ALT 19 (<50) IU/L Alkaline Phosphatase 81 (38-126) U/L Total Protein 6.0 L (6.3-8.2) g/dL Albumin 3.7 (3.5-5.0) g/dL Globulin 2.3 (1.7-4.1) g/dL Albumin/Globulin Ratio 1.6 (1.0-2.8) MDM Narrative Medical decision making narrative: 77-year-old male with right lower extremity weakness onset overnight, patient has had greater than 12 hours of symptoms. Labs at outside facility were reviewed White count of 9.3 hemoglobin of 13 platelets of 2 60s, sodium 136 potassium 4 1 chloride 100 CO2 26 anion gap is 10, glucose is 101 BUN 16 creatinine 1.12, LFTs are negative magnesium is 1.9, Dilantin is set 6.2 troponins less than 0.01 CT abdomen pelvis shows no acute osseous abnormality of the lumbar spine interval prior lumbar interbody fusion. Dr. Linn: Care of patient is signed out to me by daytime physician. Independent review of patient and chart performed by myself. Patient reports several weeks of progressive left lower extremity weakness. He states that he came today because he fell because he could not move his left leg. Patient states he has a history of brain tumor in the past. He states that it was at least 25 years ago, he was not remember what kind of tumor he had, but states that he did not have any chemo or radiation following his procedure. He states that his only medications are Keppra and Dilantin, he was not take aspirin or Plavix or any other medications. Pending CT brain and CT angio imaging. 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 associated stenosis present. Case discussed with [facility]. They recommend starting baby aspirin daily as well as 40 mg of Lipitor daily. Since he has a history of brain tumor they recommended an MRI of the brain with and without contrast, however patient does not qualify for any acute interventions based on the chronicity of his symptoms. Patient to be admitted for further treatment of his condition. Discharge Plan Departure Patient Disposition: Admitted as Observation Clinical Impression: Left leg weakness, History of brain tumor Admit Date/Time: 09/16/23 00:10 Admit Provider: Paolo Bach
--- NOTE | 2023-09-15 19:16 | DI.CT.S_ITS ---
PROCEDURE: CT ANGIO HEAD AND NECK INDICATIONS: R LE weakness, started overnight. TECHNIQUE: After the administration of intravenous contrast, 1 mm thick sections acquired from the aortic arch through the [place] of [place]. 3-dimensional hjjorpd-dekmztyoa-jprejogsfz (MIP) and/or volume rendering reformats were acquired of the central intracranial vasculature and neck separately. For radiation dose reduction, the following was used: automated exposure control, adjustment of mA and/or kV according to patient size. COMPARISON: [facility], CT, CT HEAD/BRAIN WO CON, 09/15/2023, 19:24. FINDINGS: Image quality: Diagnostic. BRAIN: CSF spaces: Ventricles are normal in size and shape. Basal cisterns are patent. No extra-axial fluid collections. Brain: Postsurgical changes from right craniotomy with chronic encephalomalacia in the right frontotemporal region. Skull and face: Status post right craniotomy. Calvarium and facial bones otherwise appear intact, without suspicious lesions. Orbits appear normal. Sinuses: Sinuses and mastoids are clear. HEAD CT ANGIOGRAPHY: Anterior circulation: Intracranial internal carotid arteries demonstrate atherosclerotic calcifications without hemodynamically significant stenosis. Hip. The flow within the paired anterior cerebral arteries is normal and symmetric. The flow within the middle cerebral arteries is normal and symmetric. The anterior communicating artery is seen. No aneurysms are seen. Posterior circulation: There is occlusion of the intracranial portion of the left vertebral artery beginning at the foramen magnum to the level of the confluence. The left PICA territory is supplied by a left AICA. Intracranial right vertebral artery demonstrates mild atherosclerotic calcifications without hemodynamically significant stenosis. Basilar artery is patent. Visualized portions of the vertebral arteries demonstrate normal caliber, and join to form a normal appearing basilar artery. Flow within the posterior cerebral arteries is normal and symmetric. No aneurysms are seen. NECK CT ANGIOGRAPHY: Carotid system: The great vessels demonstrate a conventional anatomy as they arise from the aortic arch. Short segment less than 50% stenosis of the proximal left subclavian artery. Mild atherosclerotic calcifications are seen at the origins of the brachiocephalic and left common carotid arteries without hemodynamically significant stenosis. The common carotid arteries demonstrate mild atherosclerotic calcifications without significant stenosis atherosclerotic calcifications are seen at the carotid bifurcations bilaterally, which result in approximately 50% stenosis of the proximal left internal carotid artery without hemodynamically significant stenosis of the right internal carotid artery. Posterior circulation: Focal atherosclerotic calcifications resulting approximately 60% narrowing of the right vertebral artery the origin. Mild narrowing of the left vertebral artery origin without imaging at least significant stenosis. 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 The more superior extracranial portions of both vertebral arteries demonstrate normal courses and calibers. Soft tissues: Visualized neck soft tissues demonstrate no suspicious abnormalities. Bilateral emphysematous changes in the included lungs. Bones: No suspicious bony lesions. Multilevel degenerative changes are seen in the spine. IMPRESSION: 1. 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 Left posterior inferior cerebellar artery is supplied by a dominant left anterior inferior cerebellar artery. 2. Focal 60% narrowing of the right vertebral artery at the origin. 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 3. Approximately 50% narrowing of the left internal carotid artery at the carotid bifurcation. 4. Short segment 50% narrowing of the proximal left subclavian artery. 5. Postsurgical changes from remote right craniotomy with chronic right frontotemporal encephalomalacia. Any quantitative measurements of stenosis were performed using NASCET criteria. Approved by: Rip White M.D. on 09/15/2023 at 20:17
--- NOTE | 2023-09-15 19:16 | DI.CT.S_ITS ---
PROCEDURE: CT HEAD/BRAIN WO CON INDICATIONS: R LE weakness, started overnight. TECHNIQUE: Noncontrast 4.5 mm thick angled axial sections acquired from the foramen magnum to the vertex, with coronal and sagittal reformats. For radiation dose reduction, the following was used: automated exposure control, adjustment of mA and/or kV according to patient size. COMPARISON: None. FINDINGS: Image quality: Diagnostic. CSF spaces: Basal cisterns are patent. No extra-axial fluid collections. The ventricles are symmetric in size and shape. Brain: No intracranial bleeds or masses. There is cerebral volume loss for age, with resultant ventricular and sulcal prominence. There are periventricular and deep white matter chronic small vessel ischemic changes. There is intracranial internal carotid artery atherosclerosis. Encephalomalacia of the right MCA territory. Skull and face: Calvarium and visualized facial bones appear intact, without suspicious lesions. Right craniotomy. Sinuses: Visualized sinuses and mastoids are clear. IMPRESSION: No acute intracranial pathology. Dictated by: Bakari Foster M.D. on 09/15/2023 at 19:56 Approved by: Bakari Foster M.D. on 09/15/2023 at 19:57
[2023-09-15 19:38] LABS: Add Manual Diff / Slide Review NO; Basophils Absolute Auto 100 /uL (0-100); Basophils Percent Auto 1.1 % (0-2); Eosinophils Absolute Auto 0 /uL (0-450); Eosinophils Percent Auto 0.1 % (2-4); Hematocrit 37.3 % (41-53); Lymphocytes Absolute Auto 700 /uL (1100-4500); Lymphocytes Percent Auto 8.6 % (25-40); Mean Corpuscular HGB Conc 34.7 % (30-36); Mean Corpuscular Hemoglobin 34.8 PG (26-34); Mean Corpuscular Volume 100.2 fL (80-100); Monocytes Absolute Auto 1400 /uL (0-900); Monocytes Percent Auto 16.7 % (3-14); Neutrophils Absolute Auto 5900 /uL (1500-7000); Neutrophils Percent Auto 73.5 % (50-75); Platelet Count 256 X10^3/uL (150-400); Red Blood Cell Count 3.73 X10^6/uL (4.5-5.9); Red Cell Distribution Width 13.4 % (11.6-14.8); White Blood Cell Count 8.1 X10^3/uL (4.5-11.0)
[2023-09-15 19:58] LABS: Alanine Aminotransferase 19 IU/L (<50); Albumin 3.7 g/dL (3.5-5.0); Albumin Globulin Ratio 1.6 (1.0-2.8); Alkaline Phosphatase 81 U/L (38-126); Aspartate Aminotransferase 32 IU/L (17-59); BUN Creatinine Ratio 19.7 (6-22); Bilirubin Total 0.6 mg/dL (0.2-1.3); Blood Urea Nitrogen 15 mg/dL (9-20); Calcium 8.5 mg/dL (8.4-10.2); Carbon Dioxide 19 mmol/L (22-32); Chloride 104 mmol/L (98-107); Estimated Glomerular Filt Rate > 60 mL/min (>60); Globulin 2.3 g/dL (1.7-4.1); Glucose 98 mg/dL (80-110); Sodium 130 mmol/L (137-145)
[2023-09-15 19:59] LABS: HEMOLYSIS 86 (0-50)
[2023-09-15 20:00] LABS: Potassium 4.6 mmol/L (3.4-5.1)
--- NOTE | 2023-09-15 20:22 | EKG_ITS ---
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
[2023-09-16] VITALS (10 sets, daily range): BP systolic 116–177; BP diastolic 71–84; PULSE 68–83; RESP 16–23; TEMP 36.3–37.3; O2SAT 95–99; BMI 22.9
--- NOTE | 2023-09-16 00:25 | DI.MRI.S_ITS ---
PROCEDURE: MR HEAD/BRAIN WO/W CON INDICATIONS: suspected stroke or tumor TECHNIQUE: Noncontrast axial T1 spin echo, axial T2 fast spin echo, sagittal and axial FLAIR, coronal T2 fast spin echo, axial gradient echo, axial diffusion and ADC through the brain. After the administration of contrast, axial and coronal and sagittal 3D VIBE or T1 spin echo with fat saturation through the brain. COMPARISON: [facility], CT, CT HEAD/BRAIN WO CON, 09/15/2023, 19:24. FINDINGS: CSF Spaces: Basal cisterns are patent. No extra-axial fluid collections. Ventricles are normal in size and shape. Brain: No intracranial masses or hemorrhage. Right temporal resection cavity with mild overlying craniotomy and surrounding gliosis present. Brainstem appears normal. Diffusion-weighted sequence is unremarkable without evidence of acute infarct. Normal intravascular flow voids are present. Atrophy and confluent white matter chronic ischemic change Sinuses: Sinuses and mastoids appear clear. IMPRESSION: No evidence of acute infarct, hemorrhage or mass lesion. Atrophy, chronic ischemic change, and right temporal resection cavity Approved by: Sancho Farias M.D. on 09/16/2023 at 12:30
--- NOTE | 2023-09-16 00:29 | DI.ECHO.S_ITS ---
[place] +---------+ Hospital : : [address] : : [place] : : [id number] : : Phone: [phone] Echocardiogram Report + + :Name: HIMANSHU DUQUE Study Date: 09/16/2023 Height: 69 in : :Hospital ReadingLocation: Weight: 160 lb : : Gender: Male BSA: 1.9 m2 : :: 1945 Age: 77 yrs BP: 162/71 mmHg: :Reason For Study: SUSPECTED STROKE : :Ordering Physician: RAFA : :JOE NATH Performed By: Shawna Zhang : :Referring: JOE CHRISTIANSON : + + Interpretation Summary There is mild concentric left ventricular hypertrophy. The ejection fraction is estimated to be 60-65%. Diastolic parameters suggest probable normal left ventricular diastolic function and normal filling pressures. The right ventricle is normal in size and function. There is mild tricuspid regurgitation. The right ventricular systolic pressure is estimated to be at least 23 mmHg based on an estimated right atrial pressure of 3 mm Hg. Procedure: A two-dimensional transthoracic echocardiogram with color flow and Doppler was performed. The study quality was technically adequate. There is no prior echocardiogram noted for this patient. The patient was in sinus rhythm with heart rates between 69-86 bpm during the exam. Left Ventricle: The left ventricle is normal in size. There is mild concentric left ventricular hypertrophy. The ejection fraction is estimated to be 60-65%. Diastolic parameters suggest probable normal left ventricular diastolic function and normal filling pressures. Right Ventricle: The right ventricle is normal in size and function. Atria: The left atrial size is normal. Right atrial size is normal. There is no Doppler evidence for an interatrial shunt. Mitral Valve: The mitral valve is normal in structure and function. There is trace mitral regurgitation. Aortic Valve: The aortic valve is trileaflet. The aortic valve opens well. There is no aortic valve stenosis. No aortic regurgitation is present. Tricuspid Valve: The tricuspid valve is normal in structure and function. There is mild tricuspid regurgitation. The right ventricular systolic pressure is estimated to be at least 23 mmHg based on an estimated right atrial pressure of 3 mm Hg. Pulmonic Valve: The pulmonic valve leaflets are thin and pliable; valve motion is normal. There is mild pulmonic regurgitation. Great Vessels: The aortic root is normal size. The dimensions of the ascending aorta are normal. The IVC is of normal diameter and collapses greater than 50% with a sniff. This suggests a low right atrial pressure of 3 mm Hg. Pericardium/ Pleura There is no pericardial effusion. There is no pleural effusion. MMode/2D Measurements & Calculations LVIDd: 4.0 cm LVOT diam: 2.0 cm LVIDs: 2.6 cm Ao root diam: 3.1 cm FS: 35.6 % asc Aorta Diam: 3.2 cm IVSd: 1.1 cm LVPWd: 1.1 cm LV eisenberg. diameter/BSA (cm/m^2): 2.2 LV sys. diameter/BSA (cm/m^2): 1.4 LA A2 area: 15.5 cm2 RA long axis: 4.2 cm LA A4 area: 14.0 cm2 RA area: 11.5 cm2 LA length (vol): 4.7 cm RA vol: 26.6 ml LA vol: 39.6 ml RA : 14.2 ml/m2 LA vol index: 21.1 ml/m2 IVC diam: 2.0 cm RVD1 (basal): 3.6 cm RVD2 (mid): 2.8 cm TAPSE: 2.1 cm Doppler Measurements & Calculations Ao V2 max: 115.2 cm/sec LVOT Max Eric: 111.6 cm/sec Ao V2 mean: 84.2 cm/sec LV V1 max P.0 mmHg Ao max P.3 mmHg LV V1 VTI: 20.8 cm Ao mean P.1 mmHg JUNO(I,D): 2.9 cm2 Ao V2 VTI: 22.8 cm JUNO(V,D): 3.1 cm2 sev ratio: 0.91 JUNO indexed to BSA (cm^2/m^2): 1.5 MV E max eric: 59.2 cm/sec TR max eric: 224.8 cm/sec MV A max eric: 72.0 cm/sec TR max P.2 mmHg MV E/A: 0.82 PA V2 max: 97.0 cm/sec Med Peak E' Eric: 5.9 cm/sec PA V2 mean: 71.8 cm/sec E/E' med: 10.1 PA mean P.2 mmHg Lat Peak E' Eric: 7.0 cm/sec PA pr(Accel): 41.3 mmHg E/E' lat: 8.5 E/e' average: 9.3 MV dec time: 0.19 sec SVLVOT): 65.5 ml Reading Physician:12:18 PM
--- NOTE | 2023-09-16 00:55 | PC.NURSE ---
Report given to Sheila MCCOY.
--- NOTE | 2023-09-16 02:06 | P.HP_ITS ---
History of Present Illness History of Present Illness Date Patient Seen: 09/16/23 Time Patient Seen: 02:00 Chief complaint: numbness/weakness Narrative: 77 y/o with L3-4 fusion a month ago, presented with right proximal > distal leg weakness that made him fall yesterday. He was seen at [facility] [place] where he had unremarkable CT LS. Sent to us so that orthopedic surgeon can assess him. He did not have any postop complications. 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 He is on steady regimen of Keppra and Dilantin and had no breakthrough seizures in 9 years. 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 associated stenosis present. Case discussed with [facility] recommending ASA and statin. Placed in observation. [facility] Medical History Radiculopathy Lumbar disc herniation Bladder cancer (2020) Arthritis Seizure disorder (~1983) Surgical History Hx of tonsillectomy H/O transurethral resection of bladder tumor (TURBT) Hx of bilateral cataract extraction Social History household members: spouse Smoking Status: Former smoker alcohol intake: current Meds Home Medications and Allergies Home Medications Medication Instructions Recorded Confirmed Type cholecalciferol (vitamin D3) 50 1 tab PO QDAY #0 tabs 10/10/15 09/16/23 History mcg (2,000 unit) tablet (Vitamin D3) levetiracetam 1,000 mg tablet 1,000 mg PO BID ##0 10/10/15 09/16/23 History (Keppra) phenytoin sodium extended 100 mg 100 mg PO BID ##0 10/10/15 09/16/23 History capsule (Dilantin Extended) acetaminophen 650 mg 1,300 mg PO Q6HR PRN Pain (Scale 07/29/23 09/16/23 History tablet,extended release Score 1-3) diphenhydramine 25 4 tab PO BEDTIME 07/29/23 09/16/23 History mg-acetaminophen 500 mg tablet (Acetaminophen PM) cyclobenzaprine 10 mg tablet 5 mg (1/2 x 10 mg) PO Q8HR PRN 08/05/23 09/16/23 Rx Muscle Spasm #30 tabs Allergies Allergy/AdvReac Type Severity Reaction Status Date / Time tobramycin [TOBRAMYCIN] Allergy Unknown EYE Verified 08/03/23 08:21 GTTS-ERYTHEMA TO EYE AND EYELID, EDEMA TO EYELID Review of Systems Constitutional Comments: w/o fever or chills Cardiovascular Comments: w/o chest pain or palpitations Respiratory Comments: w/o shortness of breath Neurologic Comments: weak right upper leg, some numbness Exam Vital Signs (past 8 hours): - 09/15/23 18:41 09/15/23 18:42 09/15/23 18:42 Pulse Rate 87 86 Respiratory Rate Blood Pressure 164/78 H Pulse Oximetry 97 97 Oxygen Delivery Method Room Air 09/15/23 19:00 09/15/23 19:00 09/15/23 19:40 Pulse Rate 76 95 H Respiratory Rate Blood Pressure 143/70 H Pulse Oximetry 95 83 L Oxygen Delivery Method Room Air 09/15/23 19:52 09/15/23 19:52 09/15/23 20:00 Pulse Rate 86 Respiratory Rate Blood Pressure 160/74 H 129/80 Pulse Oximetry 96 Oxygen Delivery Method 09/15/23 20:00 09/15/23 20:30 09/15/23 20:34 Pulse Rate 75 73 Respiratory Rate Blood Pressure 130/93 H Pulse Oximetry 96 95 Oxygen Delivery Method 09/15/23 20:34 09/15/23 21:00 09/15/23 21:00 Pulse Rate 76 67 Respiratory Rate Blood Pressure 137/63 Pulse Oximetry 95 94 Oxygen Delivery Method 09/15/23 21:20 09/15/23 21:30 09/15/23 21:41 Pulse Rate 73 72 Respiratory Rate Blood Pressure 140/61 Pulse Oximetry 95 97 Oxygen Delivery Method 09/15/23 22:00 09/15/23 22:01 09/15/23 22:01 Pulse Rate 66 66 Respiratory Rate 17 21 Blood Pressure 176/83 H Pulse Oximetry 94 95 Oxygen Delivery Method 09/15/23 22:30 09/15/23 22:30 09/15/23 23:00 Pulse Rate 72 70 Respiratory Rate 30 H 21 Blood Pressure 152/73 H Pulse Oximetry 94 95 Oxygen Delivery Method 09/15/23 23:00 09/15/23 23:30 09/15/23 23:30 Pulse Rate 72 Respiratory Rate 21 Blood Pressure 157/72 H 162/74 H Pulse Oximetry 94 Oxygen Delivery Method 09/16/23 00:00 09/16/23 00:00 09/16/23 00:30 Pulse Rate 74 69 Respiratory Rate 23 19 Blood Pressure 177/84 H Pulse Oximetry 95 95 Oxygen Delivery Method 09/16/23 00:31 09/16/23 00:31 09/16/23 01:01 Pulse Rate 68 83 Respiratory Rate 19 Blood Pressure 148/72 H Pulse Oximetry 95 Oxygen Delivery Method Room Air 09/16/23 01:43 Pulse Rate Respiratory Rate Blood Pressure Pulse Oximetry Oxygen Delivery Method Room Air Oxygen Delivery Method Room Air Const Other: In no distress HENMT Other: normocephalic Eyes Other: eomi Neck Other: supple Resp Other: normal respiratory effort, CTA Cardio Other: RRR, w/o murmurs GI Other: w/o distension Skin Other: w/o rashes Neuro Other: Rt proximal leg weakness Extrem Other: w/o deformities or swelling Psych Other: lucid, appropriate mood Objective ECG Impression: NSR Labs 09/15/23 17:22 09/15/23 17:22 Labs: Laboratory Results - last 24 hr 09/15/23 17:22 WBC 8.1 RBC 3.73 L Hgb 13.0 L Hct 37.3 L MCV 100.2 H MCH 34.8 H MCHC 34.7 RDW 13.4 Plt Count 256 Neut % (Auto) 73.5 Lymph % (Auto) 8.6 L [place] % (Auto) 16.7 H Eos % (Auto) 0.1 L Baso % (Auto) 1.1 Neut # (Auto) 5900 Lymph # (Auto) 700 L [place] # (Auto) 1400 H Eos # (Auto) 0 Baso # (Auto) 100 Sodium 130 L Potassium 4.6 Chloride 104 Carbon Dioxide 19 L BUN 15 Creatinine 0.76 Estimated GFR > 60 BUN/Creatinine Ratio 19.7 Glucose 98 Calcium 8.5 Total Bilirubin 0.6 AST 32 ALT 19 Alkaline Phosphatase 81 Total Protein 6.0 L Albumin 3.7 Globulin 2.3 Albumin/Globulin Ratio 1.6 Assessment & Plan Assessment and plan (1) Right leg weakness: Status: Acute (2) S/P lumbar fusion: Status: Acute (3) History of brain tumor: Status: Acute (4) Epilepsy: Status: Acute Assessment & Plan narrative: Rt Proximal Leg Weakness - radiculopathy? orthopedic Sx will see him, Dr Lagunas. Initial workup not suggestive of postop complications. - considering CTA results, at risk for CVA. MRI w/o contrast, echo, lipids, A1C and TSH pending. Started ASA and statin as recommended by neurology clinical sales consultant. - Hx of craniotomy 40 yrs ago for, most likely meningeoma. MRI w contrast pending s/p LS Fusion - had herniated disc - prn Tylenol, Flexeril - will be seen by orthopedist Epilepsy - Terrie Richardson - stable on current regimen w/o breakthrough seizures in 9 years - levels pending DVT prophylaxis - Lovenox Time-Based Coding :: [TOTAL MINUTES] spent with patient and on the chart (including review of chart, obtaining history, exam, reviewing outside data, placing orders, documenting exam and treatment plan, and counseling patient) on [DATE].
--- NOTE | 2023-09-16 02:33 | PC.NURSE ---
Pt noted to be standing at the foot of his bed urinating in the trash can and on the floor. Pt quickly returns to his bed when prompted and seems to barely recall himself doing this. Pt asked orientation questions and was only able to answer some questions with multiple choice options. Floor Rns updated and room changed to accommodate pt safety.
[2023-09-16 06:11] LABS: Add Manual Diff / Slide Review NO; Basophils Absolute Auto 0 /uL (0-100); Basophils Percent Auto 0.5 % (0-2); Eosinophils Absolute Auto 0 /uL (0-450); Eosinophils Percent Auto 0.2 % (2-4); Hematocrit 38.8 % (41-53); Hemoglobin 13.5 g/dL (13.5-17.5); Lymphocytes Absolute Auto 1000 /uL (1100-4500); Lymphocytes Percent Auto 16.4 % (25-40); Mean Corpuscular HGB Conc 34.9 % (30-36); Mean Corpuscular Hemoglobin 35.1 PG (26-34); Mean Corpuscular Volume 100.6 fL (80-100); Monocytes Absolute Auto 1100 /uL (0-900); Monocytes Percent Auto 18.4 % (3-14); Neutrophils Absolute Auto 3800 /uL (1500-7000); Neutrophils Percent Auto 64.5 % (50-75); Platelet Count 224 X10^3/uL (150-400); Red Blood Cell Count 3.85 X10^6/uL (4.5-5.9); Red Cell Distribution Width 13.4 % (11.6-14.8); White Blood Cell Count 5.9 X10^3/uL (4.5-11.0)
[2023-09-16 06:31] LABS: Cholesterol 158 mg/dL (140-199); HDL Cholesterol 53 mg/dL (40-60); Hemoglobin A1C% w Est Avg Glu 4.9 % (4.0-6.0); LDL Cholesterol Calculated 87 mg/dL (<100); Triglycerides 90 mg/dL (35-150)
[2023-09-16 06:32] LABS: BUN Creatinine Ratio 17.3 (6-22); Blood Urea Nitrogen 13 mg/dL (9-20); Calcium 8.2 mg/dL (8.4-10.2); Carbon Dioxide 20 mmol/L (22-32); Chloride 105 mmol/L (98-107); Estimated Glomerular Filt Rate > 60 mL/min (>60); Glucose 92 mg/dL (80-110); HEMOLYSIS < 15 (0-50); Potassium 3.8 mmol/L (3.4-5.1); Sodium 132 mmol/L (137-145)
[2023-09-16 06:38] LABS: Phenytoin / Dilantin 4.2 ug/mL (10-20)
[2023-09-16 07:03] LABS: Thyroid Stimulating Hormone 0.496 uIU/mL (0.47-4.68)
--- NOTE | 2023-09-16 07:42 | PM.HP.1 ---
History of Present Illness History of Present Illness Date Patient Seen: 09/16/23 Chief complaint: numbness/weakness Narrative: From night doctor: 77 y/o with L3-4 fusion a month ago, presented with right proximal > distal leg weakness that made him fall yesterday. He was seen at [facility], [place] where he had unremarkable CT LS. Sent to us so that orthopedic surgeon can assess him. He did not have any postop complications. 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 He is on steady regimen of Keppra and Dilantin and had no breakthrough seizures in 9 years. 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 associated stenosis present. Case discussed with [facility] recommending ASA and statin. Placed in observation. S: He was had proximal right leg weakness since Thursday night. He was fallen multiple times. He would called EMS for help getting up in the 3rd time they insisted that he come to the emergency department. He denies any back pain. His leg is mostly weak in the hip and knee. His foot has relatively good strength. He has no radicular pain. He denies any arm weak weakness, headache, or visual changes. He has no history of TIA or stroke. Does have a history of a right middle hemispheric meningioma resection distantly. He was been on seizure medicines chronically with no breakthrough seizures. [facility] Medical History Radiculopathy Lumbar disc herniation Bladder cancer (2020) Arthritis Seizure disorder (~1983) Surgical History Hx of tonsillectomy H/O transurethral resection of bladder tumor (TURBT) Hx of bilateral cataract extraction Social History household members: spouse Smoking Status: Former smoker alcohol intake: current Meds Home Medications and Allergies Home Medications Medication Instructions Recorded Confirmed Type cholecalciferol (vitamin D3) 50 1 tab PO QDAY #0 tabs 10/10/15 09/16/23 History mcg (2,000 unit) tablet (Vitamin D3) acetaminophen 650 mg 1,300 mg PO Q6HR PRN Pain (Scale 07/29/23 09/16/23 History tablet,extended release Score 1-3) diphenhydramine 25 4 tab PO BEDTIME 07/29/23 09/16/23 History mg-acetaminophen 500 mg tablet (Acetaminophen PM) Dilantin 200 mg PO DAILY 09/16/23 09/16/23 History doxycycline monohydrate 100 mg PO DAILY 09/16/23 09/16/23 History levetiracetam 750 mg tablet 750 mg PO DAILY 09/16/23 09/16/23 History (Debra) Allergies Allergy/AdvReac Type Severity Reaction Status Date / Time tobramycin [TOBRAMYCIN] Allergy Unknown EYE Verified 08/03/23 08:21 GTTS-ERYTHEMA TO EYE AND EYELID, EDEMA TO EYELID Review of Systems Review of Systems Narrative: All else reviewed and otherwise unremarkable except as noted in the history and physical. Exam Vital Signs (past 8 hours): - 09/16/23 00:00 09/16/23 00:00 09/16/23 00:30 Temperature Pulse Rate 74 69 Respiratory Rate 23 19 Blood Pressure 177/84 H Pulse Oximetry 95 95 Oxygen Delivery Method Oxygen Flow Rate 09/16/23 00:31 09/16/23 00:31 09/16/23 01:01 Temperature Pulse Rate 68 83 Respiratory Rate 19 Blood Pressure 148/72 H Pulse Oximetry 95 Oxygen Delivery Method Room Air Oxygen Flow Rate 09/16/23 01:18 09/16/23 01:43 09/16/23 06:00 Temperature 97.3 F L 97.8 F Pulse Rate 69 74 Respiratory Rate 22 18 Blood Pressure 162/71 H 145/73 H Pulse Oximetry 98 95 Oxygen Delivery Method Room Air Oxygen Flow Rate 0 0 Oxygen Delivery Method Room Air Oxygen Flow Rate 0 Narrative Exam Narrative: NAD, alert and oriented, fluent speech, calm. Normocephalic skull, EOMI, anicteric sclera, symmetric pupils. Oropharynx unremarkable, no droop. Neck supple, midline trachea, no adenopathy. Lungs clear, normal rate and effort. Heart regular, no murmur gallop or rub. Abdomen is soft, non distended and non tender. Extremities are free of edema. Skin is free of rash or lesions. Joints are not swollen or deformed. Judgment appears to be normal. Normal speech and cranial nerves. Arm strength is normal bilaterally. He has weakness with hip flexion only be able the straight leg raise for 2-3 seconds. He was better strength with knee extension and very good plantar and dorsiflexion of the foot. His left leg is normal. Objective ECG Impression: Normal sinus rhythm Imaging Multiple studies:: Radiologist's impression: ECHO: There is mild concentric left ventricular hypertrophy. The ejection fraction is estimated to be 60-65%. Diastolic parameters suggest probable normal left ventricular diastolic function and normal filling pressures. The right ventricle is normal in size and function. There is mild tricuspid regurgitation. The right ventricular systolic pressure is estimated to be at least 23 mmHg based on an estimated right atrial pressure of 3 mm Hg. Brain MRI: No evidence of acute infarct, hemorrhage or mass lesion. Atrophy, chronic ischemic change, and right temporal resection cavity Brain CT: No acute intracranial pathology. Head and neck CTA: 1. 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 Left posterior inferior cerebellar artery is supplied by a dominant left anterior inferior cerebellar artery. 2. Focal 60% narrowing of the right vertebral artery at the origin. 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 3. Approximately 50% narrowing of the left internal carotid artery at the carotid bifurcation. 4. Short segment 50% narrowing of the proximal left subclavian artery. 5. Postsurgical changes from remote right craniotomy with chronic right frontotemporal encephalomalacia. LS Spine MRI: Surgical fusion L3-4, without hardware complication. No fluid collection. Multilevel degenerative disc disease and facet arthrosis, not significantly changed from prior. No severe spinal canal or neural foraminal narrowing. Labs 09/16/23 05:46 09/16/23 05:46 Labs: Laboratory Results - last 24 hr 09/15/23 09/16/23 17:22 05:46 WBC 8.1 5.9 RBC 3.73 L 3.85 L Hgb 13.0 L 13.5 Hct 37.3 L 38.8 L MCV 100.2 H 100.6 H MCH 34.8 H 35.1 H MCHC 34.7 34.9 RDW 13.4 13.4 Plt Count 256 224 Neut % (Auto) 73.5 64.5 Lymph % (Auto) 8.6 L 16.4 L Briscoe % (Auto) 16.7 H 18.4 H Eos % (Auto) 0.1 L 0.2 L Baso % (Auto) 1.1 0.5 Neut # (Auto) 5900 3800 Lymph # (Auto) 700 L 1000 L Briscoe # (Auto) 1400 H 1100 H Eos # (Auto) 0 0 Baso # (Auto) 100 0 Sodium 130 L 132 L Potassium 4.6 3.8 Chloride 104 105 Carbon Dioxide 19 L 20 L BUN 15 13 Creatinine 0.76 0.75 Estimated GFR > 60 > 60 BUN/Creatinine Ratio 19.7 17.3 Glucose 98 92 Hemoglobin A1c 4.9 Calcium 8.5 8.2 L Total Bilirubin 0.6 AST 32 ALT 19 Alkaline Phosphatase 81 Total Protein 6.0 L Albumin 3.7 Globulin 2.3 Albumin/Globulin Ratio 1.6 Triglycerides 90 Cholesterol 158 LDL Cholesterol, Calc 87 HDL Cholesterol 53 TSH 0.496 Phenytoin 4.2 L Assessment & Plan Assessment & Plan narrative: 1. Rt Proximal Leg Weakness, present on admission and active. - radiculopathy? orthopedic Sx will see him, Dr Lagunas. Initial workup not suggestive of postop complications. - considering CTA results, at risk for CVA. MRI w/o contrast, echo, lipids, A1C and TSH pending. Started ASA and statin as recommended by neurology outbound sales consultant. - Hx of craniotomy 40 yrs ago for, most likely meningeoma. MRI w contrast pending negative for acute findings. -physical and occupational therapy evaluations. 2. s/p LS Fusion, present on admission and active. - had herniated disc - prn Tylenol, Flexeril - will be seen by orthopedist 3. Epilepsy, present on admission and active. - Jeevan Richardsonn - stable on current regimen w/o breakthrough seizures in 9 years - levels pending PLAN: -continue current medications -PT/OT evals. -MRI brain completed. -ortho consult requested. HETAL: 09/17, SNF likely. DVT prophylaxis - Lovenox Time-Based Coding :: [TOTAL MINUTES] spent with patient and on the chart (including review of chart, obtaining history, exam, reviewing outside data, placing orders, documenting exam and treatment plan, and counseling patient) on [DATE].
[2023-09-16] MEDS: ENOXAPARIN 40 MG/0.4 ML SYRINGE SUBCUT (11:44)
[2023-09-16] MEDS: ASPIRIN EC 81 MG TABLET PO (11:44)
[2023-09-16] MEDS: CHOLECALCIFEROL (VITAMIN D3) 1,000 UNIT TABLET 1000 UNIT PO (11:44)
[2023-09-16] MEDS: PHENYTOIN ER 100 MG CAPSULE 200 MG PO (11:44)
--- NOTE | 2023-09-16 15:36 | CM.DANOTE ---
Initial DCP Assessment Visit Note Reviewed EMR and team rounds for pt's medical status and updates. Met with pt at bedside to introduce self and role, pt was found to be laying flat in bed, alert/oriented, resting comfortably. He resides independently with his in their own home in Thursday. His will plan to be here to transport him home, anticipated for tomorrow (, 8-1), will likely need a medical priority boarding pass at discharge. Payor: Medicare PCP: Tony Gonzales Pt is a 77 year-old M with a hx of a sezure disorder and recent back surgery this last July presents to the ED via EMS after he fell in his bathroom. He states that his legs got shaky and gave out on him. He was found to have significant R-sided weakness in his R-leg, however no other symptoms of a possible stroke. 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 The ED consulted with [facility], who recommended starting him on daily baby aspirin and Lipitor. He was then placed in OBS for further tx/eval. Ortho consult is pending, OT/PT evals pending, Dietary Consult completed. DCP will continue to follow and assist with any evolving home d/c needs prior to his departure. Discharge Planning/Care Management CM Discharge Assessment Start: 09/16/23 15:35 Freq: Status: Active Protocol: Document 09/16/23 15:35 DPL (Rec: 09/16/23 15:36 DPL [id number]) Discharge Planning Assessment Assigned Front Maker MARCELLO Acosta Advance Directives? Yes Advance Directives on File No History Provided By Patient,Medical Record Has Patient been admitted in last 30 No days? Prior Living Arrangements House Household Members spouse Type of transporation used prior to Drives own vehicle admit Independent with ADL's Yes Is patient alert and oriented? Yes Caregiver for Another No Comment No identified d/c needs at this time. Barriers to Discharge No Discharge Plan Home Transportation Arrangement spouse in POV Referrals Initiated None needed Whiteboard Updated in Patient Room with Yes name and ext. # of Front Maker Review Status In Process Please Provide Date Initial DC 09/16/23 Assessment Was Performed
[2023-09-16] MEDS: predniSONE 20 MG TABLET 40 MG PO (15:57)
--- NOTE | 2023-09-16 16:05 | PM.PN.1 ---
Exam Vital Signs (past 8 hours): - 09/16/23 09:00 09/16/23 10:00 09/16/23 14:00 Temperature 97.8 F 98.4 F Pulse Rate 76 72 Respiratory Rate 16 16 Blood Pressure 116/73 142/73 H Pulse Oximetry 96 99 Oxygen Delivery Method Room Air Oxygen Flow Rate 0 Oxygen Delivery Method Room Air Oxygen Flow Rate 0 Objective Labs 09/16/23 05:46 09/16/23 05:46 Labs: Laboratory Results - last 24 hr 09/15/23 09/16/23 17:22 05:46 WBC 8.1 5.9 RBC 3.73 L 3.85 L Hgb 13.0 L 13.5 Hct 37.3 L 38.8 L MCV 100.2 H 100.6 H MCH 34.8 H 35.1 H MCHC 34.7 34.9 RDW 13.4 13.4 Plt Count 256 224 Neut % (Auto) 73.5 64.5 Lymph % (Auto) 8.6 L 16.4 L Morrison % (Auto) 16.7 H 18.4 H Eos % (Auto) 0.1 L 0.2 L Baso % (Auto) 1.1 0.5 Neut # (Auto) 5900 3800 Lymph # (Auto) 700 L 1000 L Morrison # (Auto) 1400 H 1100 H Eos # (Auto) 0 0 Baso # (Auto) 100 0 Sodium 130 L 132 L Potassium 4.6 3.8 Chloride 104 105 Carbon Dioxide 19 L 20 L BUN 15 13 Creatinine 0.76 0.75 Estimated GFR > 60 > 60 BUN/Creatinine Ratio 19.7 17.3 Glucose 98 92 Hemoglobin A1c 4.9 Calcium 8.5 8.2 L Total Bilirubin 0.6 AST 32 ALT 19 Alkaline Phosphatase 81 Total Protein 6.0 L Albumin 3.7 Globulin 2.3 Albumin/Globulin Ratio 1.6 Triglycerides 90 Cholesterol 158 LDL Cholesterol, Calc 87 HDL Cholesterol 53 TSH 0.496 Phenytoin 4.2 L PFSH Medical History Radiculopathy Lumbar disc herniation Bladder cancer (2020) Arthritis Seizure disorder (~1983) Surgical History Hx of tonsillectomy H/O transurethral resection of bladder tumor (TURBT) Hx of bilateral cataract extraction Social History household members: spouse Smoking Status: Former smoker alcohol intake: current Assessment & Plan Assessment & Plan narrative: Mr. Lopez is 6 weeks s/p L3-4 TLIF on 08/03/23. He has been doing well and progressing with recovery as expected until 09/13/23. Patient reports he felt weak and has been falling at home and not able to get up. On exam, his incision is well healed, no erythema, no drainage, no swelling or induration, no pain to palpation at his lumbar spine. He has decreased right LE strength in hip flexion and quadriceps both at 4/5. He has 5/5 RLE plantarflexion/dorsiflexion. No sensory deficit. Well perfused BLE. Patient also has generalized weakness including BUE as well as core as he has difficulty push himself up from supine to sitting position. He reports the difficulty and inability to push himself from supine to sitting is the reason for his inability to get up from his falls at home. His MRI L-spine shows post op changes with L3-4 TLIF intact and in good position without evidence of hematoma or other sources of neuro compression. I do not have a diagnosis for his acute onset right sided weakness in his LE as well as generalized weakness in his UE and core. He appears to be frail and thin. His weight in June was 176. His weight on 08/16 was 160. His current weight is 155. I think his nutritional status is a questionable and possible cause for his generalized lack of energy and weakness. His total protein and albumin is both low on labs during this admission. I discussed my findings with Dr. Ann. There is no indications for any invasive intervention. I recommended a short course of oral steroids to treat possible inflammation of his post op lumbar with possible radiculitis. I recommend work on continued mobility training with PT/OT for fall precautions. I recommend work on improving nutritional status, work on gaining weight since he has 20 lbs of unintentional weight loss in the last 2-3 months. I will f/u with him in my clinic at the next scheduled appointment. He may need placement to rehab or SNF since he's current high risk for recurrent falls due to generalized weakness including right LE weakness. Time-Based Coding :: [TOTAL MINUTES] spent with patient and on the chart (including review of chart, obtaining history, exam, reviewing outside data, placing orders, documenting exam and treatment plan, and counseling patient) on [DATE].
[2023-09-16] MEDS: ATORVASTATIN 20 MG TABLET 40 MG PO (20:38)
[2023-09-16] MEDS: levETIRAcetam 250 MG TABLET 750 MG PO (20:39)
[2023-09-17 04:15] VITALS: BP 147/72; PULSE 64; RESP 18; TEMP 36.4; O2SAT 97
--- NOTE | 2023-09-17 04:41 | PC.NURSE ---
At 0405, this RN heard the wastebasket in room tip over and upon entering room found pt down on his R hip/thigh, upright with hands on floor. Pt reports he attempted to use bathroom independently, urinated on floor and slipped on the wet floor. Pt states he broke fall with hands and did not hit his head. Pt A&O x 4, VSS, skin intact, no injuries visible or reported. Denies pain. Bed bath provided, patient's bed alarm activated, non-skid socks applied. Call light in reach.
--- NOTE | 2023-09-17 07:37 | PM.PN.1 ---
Subjective Subjective Interval history: Summary: Admitted for right leg weakness, 1 month out from a spinal lumbar fusion. Brain imaging negative for acute infarct. Subjective: leg weak. PT and OT recommend IP rehab. He and are against it and want to bring him home 09/17. Exam Vital Signs (past 8 hours): - 09/17/23 04:15 Temperature 97.5 F L Pulse Rate 64 Respiratory Rate 18 Blood Pressure 147/72 H Pulse Oximetry 97 Oxygen Flow Rate 0 Oxygen Delivery Method Room Air Oxygen Flow Rate 0 Narrative Exam Narrative: NAD, alert and oriented. Fluent speech. Lungs are clear, normal rate and effort. Heart is regular, no murmur gallop or rub. Abdomen is soft, non distended. Extremities are free of edema. Right leg weakness. Objective Labs 09/16/23 05:46 09/16/23 05:46 [facility] Medical History Radiculopathy Lumbar disc herniation Bladder cancer (2020) Arthritis Seizure disorder (~1983) Surgical History Hx of tonsillectomy H/O transurethral resection of bladder tumor (TURBT) Hx of bilateral cataract extraction Social History household members: spouse Smoking Status: Former smoker alcohol intake: current Assessment & Plan Assessment & Plan narrative: 1. Rt Proximal Leg Weakness, present on admission and active. 2. S/P Lumbar 3-4 fusion, present on admission and active. - had herniated disc 3. Epilepsy, present on admission and active. - Terrie Richardson - stable on current regimen w/o breakthrough seizures in 9 years PLAN: -continue current medications -PT/OT evals. -MRI brain completed. No acute stroke. -ortho consult supports prednisone trial. HETAL: 09/17, IP rehab recommended. He is declining. Time-Based Coding :: 20 min spent with patient and on the chart (including review of chart, obtaining history, exam, reviewing outside data, placing orders, documenting exam and treatment plan, and counseling patient) on 09/16.
[2023-09-17 08:00] VITALS: BP 135/71; PULSE 66; RESP 12; TEMP 36.9; O2SAT 97
--- NOTE | 2023-09-17 09:21 | DIET.CONS ---
Dietary Consultation Note Admission Date: 09/16/2023 00:10 Assessment: 77 y M admitted after GLF. H of back surgery this July. Nutrition consulted for low MNA. Met w/ pt at bedside who reports 20 lb weight loss since July related to decrease in appetite. During last 2 months, felt he was having small portions, 50% or less of what he normally has at meal times. Reports appetite remains decreased. Nutrition focused physical exam: -Mild temporalis loss, mild loss deltoid -Mild loss subcutaneous fat (orbital and tricep) Ht: 175.26 cm Wt: 70.5 kg BMI: 22.9 UBW: 80 kg in June (12% weight loss in 3 months, severe) Last BM: 09/15/23 (09/16/23 01:43) MNA: 9 Bradly Score: 21 Diet: 09/16/23 Breakfast Heart Healthy Diet Diet Modifications: Nutrition Percent Meal Consumed 75% 09/17/23 08:00 Percent Meal Consumed 25% 09/16/23 20:11 Percent Meal Consumed 75% 09/16/23 14:00 Percent Meal Consumed 75% 09/16/23 10:00 Labs: RBC 3.85 X10^6/uL (4.5-5.9) L 09/16/23 05:46 Hgb 13.5 g/dL (13.5-17.5) 09/16/23 05:46 Hct 38.8 % (41-53) L 09/16/23 05:46 Creatinine 0.75 mg/dL (0.66-1.25) 09/16/23 05:46 Hemoglobin A1c 4.9 % (4.0-6.0) 09/16/23 05:46 Nutrition Diagnosis: Moderate acute Protein Calorie Malnutrition r/t inadequate energy-protein intake with decreased appetite as evidenced by 12% weight loss within 3 months (severe), mild muscle wasting (temporalis, deltoid), mild subcutaneous fat loss (tricep, orbital), <75% of estimated energy needs for 3 months Interventions: 1. Protein smoothie supplement trial added 2. Encouraged small frequent meals, use of ONS, reviewed protein sources, and discussed meeting energy and protein needs EER: [id number] kcals (25-28 kcals/kg oer BMI) 85-100 g protein (1.25-1.5 g/kg per PCM) Monitoring/Evaluations: po intakes, supplement tolerance Electronically Signed by: Lorena Jules 09/17/23 09:21 Clinical Dietitian [address] [id number]
[2023-09-17] MEDS: DOXYCYCLINE HYCLATE 100 MG TABLET PO (09:22)
[2023-09-17] MEDS: ACETAMINOPHEN 325 MG TABLET 650 MG PO (09:22)
[2023-09-17] MEDS: ASPIRIN EC 81 MG TABLET PO (09:22)
[2023-09-17] MEDS: PHENYTOIN ER 100 MG CAPSULE 200 MG PO (09:22)
[2023-09-17] MEDS: ENOXAPARIN 40 MG/0.4 ML SYRINGE SUBCUT (09:24)
[2023-09-17] MEDS: predniSONE 20 MG TABLET 40 MG PO (09:24)
[2023-09-17] MEDS: CHOLECALCIFEROL (VITAMIN D3) 1,000 UNIT TABLET 1000 UNIT PO (09:24)
--- NOTE | 2023-09-17 10:38 | PC.NURSE ---
Patient given tylenol for mild discomfort, he is alert and oriented x4 and knows not to get out of bed on his own. As patient fell yesterday. Patient is able to lift his left leg up but is having difficulty with his r.leg. Patient had a back sugery a couple of months ago and states that he has had some weakness to his r.extremity since. Physical therapy is going to get patient up now.
--- NOTE | 2023-09-17 11:34 | PT.IIE ---
Current Diagnoses Epilepsy, unspecified, not intractable, without status epilepticus (09/16/23) Other symptoms and signs involving the musculoskeletal system (09/16/23) Personal history of other specified conditions (09/16/23) Arthrodesis status (09/16/23) Surgical History (Last Reviewed 09/16/23 @ 07:43 by Pb Ann MD) H/O transurethral resection of bladder tumor (TURBT) Hx of bilateral cataract extraction Hx of tonsillectomy Medical History (Last Reviewed 09/16/23 @ 07:43 by Pb Ann MD) Arthritis Bladder cancer (2020) Lumbar disc herniation Radiculopathy Seizure disorder (~1983) Physical Therapy Inpatient Evaluation/Re-Eval M1 PT/OT-IP Prior Functional Status Start: 09/17/23 07:42 Freq: NEEDED Status: Active Protocol: Document 09/17/23 11:00 MB (Rec: 09/17/23 11:34 MB [id number]) Medical Review Prior Functional Status Medical History Reviewed Yes Diet/Fluid Consistency Regular Communication WNLs Mobility and Gait Mod I with RW and furniture cruising, pt states that he was following back precautions but he does not verbalize them when asked today and does not demonstrate log rolling Activities of Daily Living and IADL's Pt reports mod I Social History Household Members spouse Living Arrangements House Number of Floors (Floors) One Floor Number of Stairs To Enter/Railing? 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 M2 PT-IP Current Condition Start: 09/17/23 07:42 Freq: NEEDED Status: Active Protocol: Document 09/17/23 11:00 MB (Rec: 09/17/23 11:34 MB [id number]) Physical Therapy Current Condition Current Condition Evaluation Date 09/17/23 Treatment Diagnosis Weakness, fall M3 PT-IP Subjective Start: 09/17/23 07:42 Freq: NEEDED Status: Active Protocol: Document 09/17/23 11:00 MB (Rec: 09/17/23 11:34 MB [id number]) Subjective Physical Therapy Visit Type Type Initial Evaluation Visit Start Time 11:00 Visit Stop Time 11:15 Number of COMPLIANCE ASSOCIATE Visits 0 Physical Therapy Visit Comments Patient Comments Pt states that his right leg has been weak since surgery. He reports being I without AD before spinal surgery. Therapy Pain Assessment Pain When Pain Assessed At Rest Pain Present Pain Present Denied Pain M4 PT-IP Mobility and Gait Start: 09/17/23 07:42 Freq: NEEDED Status: Active Protocol: Document 09/17/23 11:00 MB (Rec: 09/17/23 11:34 MB [id number]) PT-Bed Mobility Assessment Rolling Type of Rolling Log Rolling,Roll to Left Level of Assist Contact Guard Assistance,1 Person Assistance Supine to Sit Supine to Sit Contact Guard Assistance,1 Person Assistance Scooting Scooting to Edge of Bed Contact Guard Assistance Scooting Up and Down in Bed Contact Guard Assistance PT-Transfer Assessment Sit to and From Stand Sit to and from Stand Contact Guard Assistance Equipment Transfer Assistive Device Gait Belt,Front Wheeled Walker Orthotic/Prosthetic Devices or Brace: No Transfers Transfer Destination Chair Transfer Technique Ambulation Transfer Ability Level of Assist Contact Guard Assistance,1 Person Assistance,Use of Upper Extremities Comments Mobility Comments Pt starts to sit straight up and therapists must cue him to lie flat, bend legs and roll to left to protect back for log roll to get up to EOB. Pt does not follow commands to push up from the bed but rather reaches for RW. Gait Assessment Gait Gait Assistance Required: Contact Guard Assist Distance (Feet) 25 Able to Maintain Weight Bearing Status Yes During Gait Assistive Devices Assistive Device Gait Belt,Front Wheeled Walker Orthotic/Prosthetic Devices or Brace: No Gait Deviations General Gait Pattern Decreased Stride Length, Decreased Feet Clearance, Flexed Trunk,Step-to Gait,Wide Based Gait Factors Limiting Gait Function Factors Limiting Gait Function Decreased Strength,Difficulty Following Directions, Incoordination,Limited Range of Motion,Poor Balance,Poor Safety Awareness Comments Gait Comments Gait is partial step-through with mild functional foot drop right foot and right knee instability with weight acceptance, functional right leg weakness with gait PT-Balance Assessment Sitting Balance and Reactions Static Sitting Balance Ability Fair Dynamic Sitting Balance Ability Fair Standing Balance and Reactions Static Standing Balance Ability Fair Dynamic Standing Balance Ability Fair Device Used RW M5 PT-IP Objective Assessments Start: 09/17/23 07:42 Freq: NEEDED Status: Active Protocol: Document 09/17/23 11:00 MB (Rec: 09/17/23 11:34 MB [id number]) Orientation Orientation/Cognition Level of Alertness Confusional State Orientation Name,Age,Birthday,Month,Year, Place Language Function Ability No Deficits Noted Safety Awareness Decreased Safety Awareness Memory Description 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,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 Motion Upper Extremity ROM Impairments Defer to OT Lower Extremity ROM Impairments Functional reduced range in right ankle DF and great toe extension with gait Strength Lower Extremity Strength Assessment Right Impaired Hip 3-/5 Knee 3+/5 Ankle 3+/5 Coordination Assessment Gross Coordination Gross Coordination Impaired Assessment Heel on Sethi Test Minimal Impairment Coordination Comments Minimal impairment on the right M6 PT-IP Treatment Start: 09/17/23 07:42 Freq: NEEDED Status: Active Protocol: Document 09/17/23 11:00 MB (Rec: 09/17/23 11:34 [id number]) Physical Therapy Treatment Exercises Exercises Ankle Pumps Education Education Provided Precautions,Safety Other Treatments Other Treatment Performed Re-ed in log rolling to protect spine M7 PT-IP Assessment and Plan Start: 09/17/23 07:42 Freq: NEEDED Status: Active Protocol: Document 09/17/23 11:00 MB (Rec: 09/17/23 11:34 [id number]) PT Summary Assessment and Plan Potential Rehabilitation Potential Good Status of Condition at Evaluation Evolving Summary Impairments ROM,Strength,Balance, Coordination,Cognition,Bed Mobility,Transfers,Gait, Activity Tolerance Progress Towards Goals Progressing Toward Goals Assessment Summary Pt is a 77 y/o male adm d/t weakness and numbness. Pt has trouble following commands today and so only MMT and coordination testing attempted by PT and pt presents with right leg weakness and poor heel to sethi. Overall, pt has poor safety awareness, cannot recall previous back precautions when asked despite stating he follows them at home and he does not demonstrate log rolling without extensive cues and re- direction from therapists. His gait is mildly step-to with mild functional foot drop on the right and decreased right knee extension stability with weight acceptance. Overall, his presentation appears neurological and may likely have lumbar spinal and brain circulation contributions to it in setting of recent surgery and left vertebral occlusion. Pt is at high risk for falls. He was d/cd home with to [place] last adm and is now re-adm. May benefit from d/c to higher level of care and rehab at d/ c to ensure safe return to I, gait and balance. Cognition is also challenging today as far as memory and impulsivity and decreased safety awareness and command-following. Goals Bed Mobility Goal Independent Transfer Goal Independent,Front Wheeled Walker,Four Wheeled Walker Gait Goal Independent,Front Wheel Walker ,Four Wheel Walker Gait Distance 85 Other Goals Pt will perform WNLs on a standardized balance test to decrease fall risk. Days to Meet Goals 5 Frequency of Treatment Frequency Of Treatment Once a Day Treatment Plan Physical Therapy Treatment Plan Bed Mobility Training,Transfer Training,Gait Training, Therapeutic Exercise,Balance Retraining,Discharge Planning, Hot or Cold Pack,Neuromuscular Re-ed,Coordination Retraining ,Manual Therapy Precautions Lumbar Precautions Log Roll,No Twisting,Limit Bending,Lifting Restriction of 10 lbs,Gait Belt above Incisional Area Weight Bearing Status Weight Bearing Status Weight Bear as Tolerated Recommendations To Nursing Amount of Assist Needed 1 Person Assist Discharge Recommendations PT Discharge Recommendations Acute Rehab Transportation Needs at Discharge Private Vehicle
--- NOTE | 2023-09-17 11:52 | OT.IP.EVAL ---
Current Diagnoses Epilepsy, unspecified, not intractable, without status epilepticus (09/16/23) Other symptoms and signs involving the musculoskeletal system (09/16/23) Personal history of other specified conditions (09/16/23) Arthrodesis status (09/16/23) Past Medical History (Last Reviewed 09/16/23 @ 07:43 by Pb Ann MD) Arthritis Bladder cancer (2020) Lumbar disc herniation Radiculopathy Seizure disorder (~1983) Surgical History (Last Reviewed 09/16/23 @ 07:43 by Pb Ann MD) H/O transurethral resection of bladder tumor (TURBT) Hx of bilateral cataract extraction Hx of tonsillectomy Occupational Therapy Inpatient Evaluation/Re-Eval M1 PT/OT-IP Prior Functional Status Start: 09/17/23 07:42 Freq: NEEDED Status: Active Protocol: Document 09/17/23 12:10 [facility] (Rec: 09/17/23 12:41 [facility] [id number]) Medical Review Prior Functional Status Medical History Reviewed Yes Diet/Fluid Consistency Regular Communication WNLs Mobility and Gait Mod I with RW and furniture cruising, pt states that he was following back precautions but he does not verbalize them when asked today and does not demonstrate log rolling Activities of Daily Living and IADL's Pt reports mod I and use of LB dressing equipment due to follow his back precautions. 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 Social History Household Members spouse Living Arrangements House Number of Floors (Floors) One Floor Number of Stairs To Enter/Railing? 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 M2 OT-IP Current Condition Start: 09/17/23 12:10 Freq: Status: Active Protocol: Document 09/17/23 12:10 [facility] (Rec: 09/17/23 12:41 [facility] [id number]) Occupational Therapy Current Condition Current Condition Evaluation Date 09/17/23 Treatment Diagnosis RLE and RUE weakness Diagnosis Onset Date 09/16/23 M3 OT- IP Subjective and Pain Start: 09/17/23 12:10 Freq: Status: Active Protocol: Document 09/17/23 12:10 [facility] (Rec: 09/17/23 12:41 [facility] [id number]) OT- Subjective Occupational Therapy Visit Type Type Initial Evaluation Visit Start Time 10:53 Visit Stop Time 11:52 Occupational Therapy Visit Comments Patient Comments Pt agreed to get up. Patient/Caregiver Goals To get better and open to going to skilled rehab. OT Pain Assessment Pain When Pain Assessed At Rest Pain Present Pain Present Denied Pain M4 OT- IP ADL's Start: 09/17/23 12:10 Freq: Status: Active Protocol: Document 09/17/23 12:10 [facility] (Rec: 09/17/23 12:41 [facility] [id number]) OT [id number] Comments OT Self-Feeding Comments Pt will need set-up of small packaging and items. OT ADL-Grooming Comments OT Grooming Comments Not performed. OT ADL-Oral Care Comments Oral Care Comments Not performed. OT ADL-Dressing Comments OT Dressing Comments Assist to socks , pt uses a socks aid at home. OT ADL-Toileting Comments OT Toileting Comments Catheter in place. OT ADL-Bathing Comments OT Bathing Comments At this time pt will benefit from assist and use of shower chair. M5 OT- IP IADL's Start: 09/17/23 12:10 Freq: Status: Active Protocol: Document 09/17/23 12:10 [facility] (Rec: 09/17/23 12:41 [facility] [id number]) OT-Instrumental Activities of Daily Living Deficits IADL Deficits Identified Deficits Home Safety Awareness Awareness of Need for Assistance at Home Decreased Awareness Home Safety Comments Pt needing increased time to answer questions on the SLUMS and having word finding difficulties. Medication Management Medication Management Comments Pt would benefit from assist. Money Management Money Management Comments Pt will benefit from assist at this time. Meal Preparation Meal Preparation Caregiver Provides Assist Closing Supervisor Closing Supervisor Caregiver Provides Assist Driving Driving Concerns Identified Regarding Safety Driving Comments Not recommended to drive at this time. M6 OT- IP Functional Cognition Start: 09/17/23 12:10 Freq: Status: Active Protocol: Document 09/17/23 12:10 [facility] (Rec: 09/17/23 12:41 [facility] [id number]) Cognitive Factors Limiting Selfcare Function Cognitive Ability Level of Alertness Alert Patient Orientation Name,Age,Birthday,Month,Date, Year,Day of Week,Place, Situation Attention Span Ability Capable of Focused Attention, Unable to Sustain Attention Ability to Follow Commands Able to Follow One Step Commands Memory Description 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,Working Impaired Problem Solving Ability Unable to Identify Errors, Needs Assist to Identify Solutions Executive Function Ability Unable to Organize Plans, Unable to Remember Details Cognitive Tests SLUMS Pt scored 22/30 which implies mild cognitive deficits. Pt able to name 6 animals in one minute and drawing a blank and unable to name anymore. Pt able to recall 3/5 objects after time passed. Pt not able to draw the number on the clock symmetrically or drawr the hour hands on the clock accurately after time given. Cognitive Comments Cognitive Assessment Comments Pt having difficulty with his short term memory and unable to complete Evening [place] Making Part B and stopped half way and time of 3 minutes and 32 seconds and just states his mind is blanking out. Pt score implies severe deficits for speed of processing, mental flexibility, executive functioning, task switching, and visual attention. Pt aware that he is not thinking well and aware that he will not drive at this time. Pt not remembering his back precautions at this time. At times pt has word finding deficits as well. OT- Vision and Hearing OT- Hearing Assessment OT- Hearing Assessment WFL OT- Vision Assessment Visual Acuity Glasses For Reading Visual Attentiveness WFL Occular Pursuits WFL Visual Convergence WFL Visual Ortega WFL Diplopia Absent M7 OT- IP Mobility and Balance Start: 09/17/23 12:10 Freq: Status: Active Protocol: Document 09/17/23 12:10 [facility] (Rec: 09/17/23 12:41 [facility] [id number]) OT- Bed Mobility Assessment Supine to Sit Supine to Sit Assist Contact Guard Assistance OT-Transfer Assessment Sit to and From Stand Sit to and from Stand Contact Guard Assistance Transfers Transfer Ability Contact Guard Assistance, Minimal Assistance Technique Transfer Destination Bed,Chair Transfer Technique Stand Step Pivot Devices Transfer Assistive Devices Gait Belt,Front Wheeled Walker Comments Mobility Comments CGA with increased time to get to the edge of the bed. CGA to stand and heavy use of the hands on the FWW. Pt needing assist to guide the FWW and for his balance as RLE is very weak and unsteady. OT- Balance Assessment Sitting Balance and Reactions Static Sitting Balance Ability Fair Dynamic Sitting Balance Ability Fair Standing Balance and Reactions Static Standing Balance Ability Fair Dynamic Standing Balance Ability Poor M8 OT- IP Objective Assessments Start: 09/17/23 12:10 Freq: Status: Active Protocol: Document 09/17/23 12:10 [facility] (Rec: 09/17/23 12:41 [facility] [id number]) OT Gross Range of Motion Upper Extremity Range of Motion Assessment Within Functional Limits OT Strength Comments Strength Comments Right hand web services professional 4/5 versus Left hand 4+/5 Overall RUE decreased from LUE by 1/2 -1 MMT grade. OT- Coordination Assessment Upper Extremity Finger to Nose Test Within Functional Limits Comments Coordination Comments Right hand 9 hole peg 43 seconds which is below 10% for his age group. Pt admit that his signature is not the same and usually has immaculate handwriting. Noted loose web services professional on the pen. Pt's LUE 33 seconds between 10 -25% for his age. Pt also tend to lean to the left on the FWW and cues to walk in the FWW for safety. OT-Muscle Tone Assessment Comments Muscle Tone Comments Noted slight tremor of right hand during 9 hole peg test. OT Sensation Assessment Comments Summary Comments To assess sensation more tomorrow. Edema Edema Present Edema Comments Right hand /wrist swollen and unable to open all the way into extension. M9 OT- IP Assessment and Plan Start: 09/17/23 12:10 Freq: Status: Active Protocol: Document 09/17/23 12:10 [facility] (Rec: 09/17/23 12:41 [facility] [id number]) OT Summary Assessment and Plan Potential Rehabilitation Potential Good Analytic Complexity at Evaluation Moderate Summary OT Impairments Range of Motion,Strength, Balance,Coordination Progress Towards Goals Slow Progress due to Medical Issues,Slow Progress due to Activity Tolerance,Slow Progress due to Cognition Assessment Summary Pt MOD complexity and with RLE weakness and RUE weakness and decreased coordination. Pt states had some weakness right after back surgery as therapy documented 08/04/23 on left knee buckling and weakness for right hip and knee. At that time recommended pt go to skilled rehab and pt refused and states went home and that his symptoms cleared up until yesterday. Pt is a high fall risk and would greatly benefit from acute rehab at this time for RLE> RUE weakness, coordination and cognitive needs. Pt is far from baseline and very motivated to get better. Pt states was suppose to start his outpt PT after having back sx 6 weeks ago, but here in the hospital for RLE weakness now. Goals Self-Feeding Goal Independent Grooming Goal Independent Dressing Goal Independent Toileting Goal Independent Bathing Goal Independent Toilet Transfer Goal Independent Shower Transfer Goal Independent Days to Meet Goals 20 Frequency of Treatment Other frequency 5x/week Treatment Plan OT Treatment Plan ADL Training,Functional Cognition Training,Functional Mobility,Therapeutic Exercises ,Patient/Family Education, Discharge Planning Discharge Recommendations OT Discharge Recommendations Acute Rehab Transportation Needs at Discharge Private Vehicle,Wheelchair/ Cabulance
[2023-09-17 12:00] VITALS: BP 158/62; PULSE 68; RESP 12; TEMP 36.3; O2SAT 100
--- NOTE | 2023-09-17 13:07 | CM.DPNOTE ---
DCP Cont Therapies recommending acute rehab as patient is below functional and physical baseline today. According to PT/OT patient is agreeable. Call received from spouse Maty asking for a priority board pass for patient's discharge home today. Discussed therapy recommendation for acute rehab and spouse resistant, says patient is coming home. Encouraged spouse to consider the recommendation as patient has been found far below baseline; spouse plans to discuss with patient and call this SW back. JW
--- NOTE | 2023-09-17 14:12 | PC.NURSE ---
Patient is confused today, she knows that she is in the hospital but has been making remarks that do not make sense. She has been incontinent of large amounts of urine in her brief and transferred herself to the bathroom x1 by herself. Patient has to be watched closely when getting up as she is a 1person assist with walker and is unsteady on her feet. She has a bed alarm in place when resting and a chair alarm in place when she is sitting up in the chair. She is being changed again now and her medications were given later in the morning/lunch as she did not get any sleep last night.
[2023-09-17 16:00] VITALS: BP 140/56; PULSE 75; RESP 20; TEMP 36.7; O2SAT 97
[2023-09-17 19:31] VITALS: BP 119/61; PULSE 70; RESP 18; TEMP 36.3; O2SAT 96
[2023-09-17] MEDS: ATORVASTATIN 20 MG TABLET 40 MG PO (20:05)
[2023-09-17] MEDS: levETIRAcetam 250 MG TABLET 750 MG PO (20:06)
[2023-09-18] VITALS: BP 119/52; PULSE 62; RESP 18; TEMP 36.7; O2SAT 95
[2023-09-18 06:00] VITALS: BP 139/68; PULSE 64; RESP 20; TEMP 37.1; O2SAT 95
[2023-09-18 06:37] LABS: Levetiracetam Keppra < 2.0 ug/mL (10.0-40.0)
[2023-09-18 08:00] VITALS: BP 140/62; PULSE 63; RESP 16; TEMP 36.6; O2SAT 99
[2023-09-18] MEDS: predniSONE 20 MG TABLET 40 MG PO (08:33)
[2023-09-18] MEDS: ASPIRIN EC 81 MG TABLET PO (08:33)
[2023-09-18] MEDS: CHOLECALCIFEROL (VITAMIN D3) 1,000 UNIT TABLET 1000 UNIT PO (08:33)
[2023-09-18] MEDS: ENOXAPARIN 40 MG/0.4 ML SYRINGE SUBCUT (08:34)
[2023-09-18] MEDS: PHENYTOIN ER 100 MG CAPSULE 200 MG PO (08:51)
[2023-09-18] MEDS: DOXYCYCLINE HYCLATE 100 MG TABLET PO (08:51)
--- NOTE | 2023-09-18 09:02 | P.DS_ITS ---
History of Present Illness History of Present Illness Chief complaint: numbness/weakness Narrative: From night doctor: 77 y/o with L3-4 fusion a month ago, presented with right proximal > distal leg weakness that made him fall yesterday. He was seen at [facility], [place] where he had unremarkable CT LS. Sent to us so that orthopedic surgeon can assess him. He did not have any postop complications. 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 He is on steady regimen of Keppra and Dilantin and had no breakthrough seizures in 9 years. 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 associated stenosis present. Case discussed with [facility] recommending ASA and statin. Placed in observation. S: He was had proximal right leg weakness since Thursday night. He was fallen multiple times. He would called EMS for help getting up in the 3rd time they insisted that he come to the emergency department. He denies any back pain. His leg is mostly weak in the hip and knee. His foot has relatively good strength. He has no radicular pain. He denies any arm weak weakness, headache, or visual changes. He has no history of TIA or stroke. Does have a history of a right middle hemispheric meningioma resection distantly. He was been on seizure medicines chronically with no breakthrough seizures. Discharge Providers Provider Date of admission: 09/16/23 00:10 Discharge Date: 09/18/23 Consults: 09/17/23 01:55 Consult to Dietitian, Adult Routine Comment: Appitite loss, weight loss, weakness Reason For Exam: Admission nutritional assessment score Consult to Occupational Therapy Evaluate & Treat Comment: Physician Instructions: Evaluate and treat Consult to Physical Therapy Evaluate & Treat Comment: Physician Instructions: Evaluate and Treat Discharge provider: Pb Ann MD Summary Hospital Course Discharge Diagnosis: 1. Rt Proximal Leg Weakness, present on admission and improving. 2. S/P Lumbar 3-4 fusion, present on admission and active. - had herniated disc 3. Epilepsy, present on admission and active. - Keppra, Dilantin - stable on current regimen w/o breakthrough seizures in 9 years Hospital Course: He was admitted for right leg weakness. This is several weeks after his lumbar fusion, lumbar 3 to lumbar 4. The patient had brain imaging which was unremarkable and not consistent with a central nervous system event. He was seen by his spine surgeon, and we placed him on prednisone. He would good improvement of leg weakness. Physical therapy and occupational therapy recommended inpatient rehab but he and declined and she was to go home with ongoing home health efforts on [facility]. The patient has a wheelchair, and walker as well as a cane there. He had a good peripheral pulse on his leg in the day of discharge and was able to lift the leg off the ground while sitting with the knee in a flexed position and could also do a straight leg raise which was much improved from the point of admission. Status at Discharge Cognitive/behavioral status at discharge: oriented Functional status at discharge: uses cane/walker Overall status at discharge: patient is progressing back to baseline Time Spent with Patient Time spent: Greater than 30 minutes Exam Vital Signs (past 8 hours): - 09/18/23 06:00 Temperature 98.7 F Pulse Rate 64 Respiratory Rate 20 Blood Pressure 139/68 Pulse Oximetry 95 Oxygen Delivery Method Room Air Oxygen Flow Rate 0 Narrative Exam Narrative: NAD, alert and oriented. Fluent speech. Lungs are clear, normal rate and effort. Heart is regular, no murmur gallop or rub. Abdomen is soft, non distended. Extremities are free of edema. He had a good peripheral pulse on his leg in the day of discharge and was able to lift the leg off the ground while sitting with the knee in a flexed position and could also do a straight leg raise which was much improved from the point of admission. Objective ECG Impression: Normal sinus rhythm Imaging Multiple studies:: Radiologist's impression: ECHO: There is mild concentric left ventricular hypertrophy. The ejection fraction is estimated to be 60-65%. Diastolic parameters suggest probable normal left ventricular diastolic function and normal filling pressures. The right ventricle is normal in size and function. There is mild tricuspid regurgitation. The right ventricular systolic pressure is estimated to be at least 23 mmHg based on an estimated right atrial pressure of 3 mm Hg. Brain MRI: No evidence of acute infarct, hemorrhage or mass lesion. Atrophy, chronic ischemic change, and right temporal resection cavity Brain CT: No acute intracranial pathology. Head and neck CTA: 1. 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 Left posterior inferior cerebellar artery is supplied by a dominant left anterior inferior cerebellar artery. 2. Focal 60% narrowing of the right vertebral artery at the origin. 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 3. Approximately 50% narrowing of the left internal carotid artery at the carotid bifurcation. 4. Short segment 50% narrowing of the proximal left subclavian artery. 5. Postsurgical changes from remote right craniotomy with chronic right frontotemporal encephalomalacia. LS Spine MRI: Surgical fusion L3-4, without hardware complication. No fluid collection. Multilevel degenerative disc disease and facet arthrosis, not significantly changed from prior. No severe spinal canal or neural foraminal narrowing. Labs 09/16/23 05:46 09/16/23 05:46 Labs: Laboratory Results - last 24 hr 09/16/23 05:46 Levetiracetam < 2.0 L PFSH Medical History Radiculopathy Lumbar disc herniation Bladder cancer (2020) Arthritis Seizure disorder (~1983) Surgical History Hx of tonsillectomy H/O transurethral resection of bladder tumor (TURBT) Hx of bilateral cataract extraction Social History household members: spouse Smoking Status: Former smoker alcohol intake: current Discharge Assessment & Plan Assessment and Plan Assessment: 1. Rt Proximal Leg Weakness, present on admission and improving. 2. S/P Lumbar 3-4 fusion, present on admission and active. - had herniated disc 3. Epilepsy, present on admission and active. - Terrie Richardson - stable on current regimen w/o breakthrough seizures in 9 years Plan of Treatment: Discharge home, declines inpatient rehab. He will be using home health services which she was arranging himself. He and understand that the has a risk of fall and injury. The patient has a wheelchair, walker, and cane at home. We will continue prednisone 40 daily for several more days with close follow up with primary care on the [facility]. Discharge Plan Discharge Plan Patient Disposition: Home Health Service Provider Discharge Comment: Stable for discharge home with , patient declines inpatient rehab and will pursue home health at his home in Thursday. Discharge orders & Medications Prescriptions: New prednisone 20 mg Tablet 40 mg PO DAILY Qty: 14 0RF Continued cholecalciferol (vitamin D3) [Vitamin D3] 2,000 UNIT tablet 1 tab PO QDAY Qty: 0 acetaminophen 650 mg Tablet Extended Release 1,300 mg PO Q6HR PRN (Reason: Pain (Scale Score 1-3)) Acetaminophen PM 25-500 mg Tablet 4 tab PO BEDTIME levetiracetam [Keppra] 750 mg Tablet 750 mg PO DAILY Rx Instructions: pt takes at night Dilantin 200 mg capsule 200 mg PO DAILY Rx Instructions: takes in am doxycycline monohydrate 100 mg capsule 100 mg PO DAILY Rx Instructions: take with food Diet/Activity/Treatments Diet: Regular Visit Report/Discharge Packet Instructions: Seizure Disorder -- Adult, DI for Constipation, How to Prevent Falls, DI for Muscle Weakness Stand Alone Forms: Patient Portal/API Discharge Data Attending Provider: Paolo Bach Admit Date/Time: 09/16/23 00:10 Quality MIPS - DC The patient has a history of heart transplant or Left Ventricular Assist Device (LVAD). If yes, STOP here.: No The patient has current or prior documentation of left ventricular ejection fraction (LVEF) less than or equal to 40%, or moderate or severely depressed left ventricular systolic function.: No
--- NOTE | 2023-09-18 09:26 | CM.DPNOTE ---
DC Note Patient has been discharged home to the care of his today; patient and spouse preference. Updated Jesse at [facility] with dispo. JW
--- NOTE | 2023-09-18 11:29 | PC.NURSE ---
Discharge: Pt feels ready to d/c to home. Dr. Ann here and gave d/c instructions to patient. Rt leg is still weak but it has improved since starting steroids. Pt reports he feels stronger on his feet. Given priority load pass. Reviewed discharge packet, questions answered. Rx has been esent. Pt aware. Pt d/c to home via auto w/spouse. Neither voiced any concerns.
== END 2023-09-18 10:10 | disposition home health service (06) ==
LOC: ED 18:49 → AC 09-16 00:11
PROVIDERS: Admitting Provider Internal Medicine; Emergency Provider Emergency Medicine; Family Provider Student in an Organized Health Care Education/Training Program; Referring Provider Emergency Medicine; Visit Provider Internal Medicine
DX: R29.898 Other symptoms and signs involving the musculoskeletal system (principal); G40.909 Epilepsy, unspecified, not intractable, without status epilepticus; W18.30XA Fall on same level, unspecified, initial encounter; Y92.9 Unspecified place or not applicable; Z87.898 Personal history of other specified conditions; Z98.1 Arthrodesis status
CPT/HCPCS: 36415; 70450; 70496; 70498; 70553; 72148; 80048; 80053; 80061; 80177; 80185; 83036; 84443; 85025; 93005; 93306; 96372; 97129; 97162; 97166; 97530; 99283; 99284; G0378; A9579; J1650; Q9967

== ENCOUNTER → 2024-12-06 08:50 | Outpatient (CLI) | payer MEDICARE, OTHER, SELFPAY ==
[2023-09-16 01:43] VITALS: BMI 22.9
--- NOTE | 2024-12-09 12:03 | DI.NM.S_ITS ---
DATE OF SERVICE: 12/06/2024 NUCLEAR CARDIOLOGY MYOCARDIAL PERFUSION STUDY PROCEDURE: Pharmacologic vasodilator stress and rest myocardial perfusion imaging study with gating to assess ejection fraction and regional wall motion. ORDERING PROVIDER: Saul Mcgowan M.D. INDICATIONS: The patient is a 78-year-old male with exertional dyspnea. CARDIAC STRESS: Per protocol, 0.4 mg of regadenoson was infused with a normal hemodynamic response. He developed moderate dyspnea but no chest discomfort or other anginal symptoms. His resting ECG shows sinus rhythm with normal ST segments. There are no significant ST-segment shifts or arrhythmias with stress. Per protocol, 25.6 millicuries of technetium-99m Myoview was injected and he was imaged 15 minutes later using a gated SPECT acquisition protocol. Earlier in the day while at rest, he had been injected with 12.1 millicuries of technetium-99m Myoview and imaged 15 minutes later, again using a gated SPECT acquisition protocol. FINDINGS: 1. Raw data. There is fairly good myocardial tracer uptake but clear evidence for diaphragmatic attenuation. The lung/heart ratio is normal at 0.34 with a normal TID ratio of 1.21. 2. Quantitated gated SPECT: Post-stress ejection fraction is 88% without any focal wall motion abnormality and specifically the proximal inferior wall has normal contractility. The resting ejection fraction is also 88% with an end-diastolic volume is 64 mL. 3. Myocardial perfusion imaging: Post-stress supine images show a fairly normal myocardial perfusion pattern except a mild perfusion defect the proximal inferior wall in a pattern consistent with diaphragmatic attenuation, supported by its complete resolution on the prone images. There are no other perfusion defects. The resting images show an identical perfusion pattern without any areas of improvement. IMPRESSION: 1. Normal myocardial perfusion study. 2. Subtle, fixed proximal inferior perfusion defect that resolves on prone imaging, most consistent with diaphragmatic attenuation artifact. There is no evidence for myocardial ischemia or previous myocardial infarction. 3. Normal left ventricular size and systolic function. 4. Moderate dyspnea but no chest discomfort or arrhythmias with pharmacologic vasodilator stress. Andrea Lopez - ANGELLA/rosie/TAMY doc#: [id number]/job#: [id number] dd: 12/06/2024 16:27:00 dt: 12/06/2024 23:01:00 DICTATING MD/COPIES TO: Bautista Osorio MD; Saul Mcgowan M.D. COPIES MNE: MAIA;
== END ==
LOC: NUCM 08:53
PROVIDERS: Family Provider Student in an Organized Health Care Education/Training Program; PCP Student in an Organized Health Care Education/Training Program; Referring Provider Student in an Organized Health Care Education/Training Program; Visit Provider Student in an Organized Health Care Education/Training Program
DX: R06.09 Other forms of dyspnea (principal); R06.02 Shortness of breath
CPT/HCPCS: 78452; 93017; A9502; J2785